=== PATIENT | male | born 1950 | race Caucasian/White ===

== ENCOUNTER 2022-05-22 13:18 | Outpatient (CLI) | payer MEDICARE, SELFPAY ==
[2022-05-22 21:33] LABS: Albumin* 4.7 g/dL (3.3-5.0); Chloride* 104 mmol/L (96-114)
[2022-05-22 21:34] LABS: Potassium* 4.6 mmol/L (3.6-5.1); Sodium* 141 mmol/L (135-149)
[2022-05-22 21:36] LABS: Aspartate Amino Transferase* 22 U/L (12-35); Bilirubin Total* 0.6 mg/dL (0.1-1.5); Carbon Dioxide* 27 mmol/L (20-32); Creatinine* 1.4 mg/dL (0.5-1.5); Estimated Glomerular Filt Rate 54 ml/min; Total Protein* 7.4 g/dL (6.0-8.3)
[2022-05-22 21:37] LABS: Alanine Aminotransferase* 22 U/L (4-50); Alkaline Phosphatase* 50 U/L (40-150); Blood Urea Nitrogen* 32 mg/dL (7-30); Calcium* 10.2 mg/dL (8.4-10.6); Glucose* 137 mg/dL (60-115)
== END 2022-05-22 13:19 | disposition home or self-care (01) ==
LOC: FRMREF 13:20
PROVIDERS: PCP Physician Assistant Medical; Visit Provider Family Medicine
DX: R05.9 Cough, unspecified (principal); R53.83 Other fatigue
CPT/HCPCS: 80053

== ENCOUNTER 2022-07-24 09:25 | Outpatient (CLI) | payer MEDICARE, SELFPAY ==
[2022-07-24 12:54] LABS: Albumin* 4.3 g/dL (3.3-5.0); Chloride* 106 mmol/L (96-114)
[2022-07-24 12:55] LABS: Potassium* 5.4 mmol/L (3.6-5.1); Sodium* 141 mmol/L (135-149)
[2022-07-24 12:57] LABS: Aspartate Amino Transferase* 22 U/L (12-35); Bilirubin Total* 0.5 mg/dL (0.1-1.5); Blood Urea Nitrogen* 30 mg/dL (7-30); Carbon Dioxide* 29 mmol/L (20-32); Cholesterol* 129 mg/dL (90-199); Creatinine* 1.4 mg/dL (0.5-1.5); Estimated Glomerular Filt Rate 54 ml/min; Glucose* 161 mg/dL (60-115)
[2022-07-24 12:58] LABS: Alanine Aminotransferase* 22 U/L (4-50); Alkaline Phosphatase* 45 U/L (40-150); Calcium* 9.3 mg/dL (8.4-10.6); HDL Cholesterol* 39 mg/dL (>=40); LDL Cholesterol Calculated 68 mg/dL (<100); Triglycerides* 108 mg/dL (40-149)
== END 2022-07-24 09:26 | disposition home or self-care (01) ==
PROVIDERS: PCP Physician Assistant Medical; Visit Provider Family Medicine
DX: Z00.00 Encounter for general adult medical examination without abnormal findings (principal); E11.9 Type 2 diabetes mellitus without complications; E78.5 Hyperlipidemia, unspecified; I10 Essential (primary) hypertension
CPT/HCPCS: 80053; 80061

== ENCOUNTER 2023-02-03 10:08 | Outpatient (CLI) | payer MEDICARE, SELFPAY | END 2023-02-03 10:09 | disposition home or self-care (01) | LOC: NFLDREF 02-05 10:14 | PROVIDERS: PCP Physician Assistant Medical; Referring Provider Physician Assistant Medical; Visit Provider Family Medicine | DX: Z00.00 Encounter for general adult medical examination without abnormal findings (principal); D64.9 Anemia, unspecified; E11.42 Type 2 diabetes mellitus with diabetic polyneuropathy; E78.2 Mixed hyperlipidemia; I10 Essential (primary) hypertension; M10.9 Gout, unspecified | CPT/HCPCS: 80053; 80061; 82043; 82570 ==

== ENCOUNTER 2023-02-24 09:48 | Outpatient (CLI) | payer MEDICARE, SELFPAY ==
--- NOTE | 2023-02-24 10:00 | CRLHL7_ITS ---
For Patients: As a result of the Century Cures Act, medical imaging exams and procedure reports are released immediately into your electronic medical record. You may view this report before your referring provider. If you have questions, please contact your health care provider. INDICATION: Disturbance of salivary secretions. Technique : A routine CT scan of the brain extends from the level of the maxilla to the calvarial vertex without contrast. Findings : The ventricles and subarachnoid spaces are proportionately enlarged due to cerebral and cerebellar volume loss. There is no acute intracranial hemorrhage there is no mass effect no midline shift. No subdural fluid collections. Small vessel ischemic changes are noted within the frontal lobe white matter and basal ganglia. Small chronic lacunar infarct in the left thalamus. No posterior fossa hemorrhage or mass effect. Paranasal sinuses appear grossly clear. The visualized portions of the parotid glands are unremarkable without evidence of ductal dilatation. Note however that the entirety of the salivary anatomy is not included. IMPRESSION: 1. Cerebral and cerebellar volume loss. Chronic small vessel ischemic changes and small chronic lacunar infarcts. 2. No parotid sialolith or parotid gland sialectasis is seen on routine CT brain images. 3. More complete evaluation of the major salivary glands would require additional imaging of the lower face and upper neck. Please note that all CT scans at this facility use dose modulation, iterative reconstruction, and/or weight-based dosing when appropriate to reduce radiation dose to as low as reasonably achievable. Dictated by Randy Milan MD @ 02/24/2023 11:57:31 AM (Electronically Signed)
--- NOTE | 2023-02-24 10:30 | CRLHL7_ITS ---
For Patients: As a result of the Century Cures Act, medical imaging exams and procedure reports are released immediately into your electronic medical record. You may view this report before your referring provider. If you have questions, please contact your health care provider. CLINICAL HISTORY: EXCESSIVE SALIVATING TECHNIQUE: The carotid circulations and the vertebral arteries in the neck were examined with osei-scale ultrasound, color-flow and Doppler spectral analysis. Degrees of stenosis were determined using SRU 2002 Consensus Panel Criteria. FINDINGS: Sonographic images demonstrate minimal atherosclerotic plaque formation without suspicious soft tissue mass. There was antegrade blood flow demonstrated within the vertebral arteries and the subclavian arteries demonstrated a normal triphasic waveform. The spectral Doppler tracings of the common carotid, internal and external carotid arteries demonstrate no abnormal turbulence or spectral broadening. There was no significant elevation of peak systolic blood flow which would indicate a hemodynamically-significant stenosis by SRU criteria. The ICA/CCA peak systolic velocity ratio measures 1.9 on the right and 0.8 on the left. IMPRESSION: Less than 50 percent stenosis of the internal carotid arteries. Dictated by Kahlil Woodruff MD @ 02/24/2023 11:53:47 AM (Electronically Signed)
== END 2023-02-24 09:49 | disposition home or self-care (01) ==
PROVIDERS: PCP Family Medicine; Visit Provider Family Medicine
DX: K11.7 Disturbances of salivary secretion (principal); I63.81 Other cerebral infarction due to occlusion or stenosis of small artery
CPT/HCPCS: 70450; 93880

== ENCOUNTER 2023-03-25 09:28 | Outpatient (CLI) | payer MEDICARE, SELFPAY ==
--- NOTE | 2023-03-25 09:45 | CRLHL7_ITS ---
For Patients: As a result of the Century Cures Act, medical imaging exams and procedure reports are released immediately into your electronic medical record. You may view this report before your referring provider. If you have questions, please contact your health care provider. INDICATION: HYPERTENSION TECHNIQUE: Grayscale, color Doppler and power Doppler evaluation of both kidneys and renal arteries. COMPARISON: None available FINDINGS: BILATERAL RENAL ARTERY DUPLEX ULTRASOUND ABDOMINAL AORTA: Peak systolic velocity = 60 cm/s. No aortic aneurysm. RIGHT KIDNEY: 11.6 cm in length. There is no hydronephrosis. Peak systolic velocity = 71 cm/second Renal artery to aortic peak systolic velocity ratio = 1.2 Resistive indices: 0.5-0.7 Renal vein = patent LEFT KIDNEY: 11.4 cm in length. There is no hydronephrosis. Peak systolic velocity = 65 cm/second Renal artery to aortic peak systolic velocity ratio = 1.1 Resistive indices: 0.670.7 Renal vein = patent IMPRESSION: No evidence of significant renal artery stenosis. Dictated by Kahlil Woodruff MD @ 03/26/2023 7:33:14 AM (Electronically Signed)
== END 2023-03-25 09:29 | disposition home or self-care (01) ==
LOC: US 09:34
PROVIDERS: PCP Family Medicine; Visit Provider Internal Medicine Nephrology
DX: I12.9 Hypertensive chronic kidney disease with stage 1 through stage 4 chronic kidney disease, or unspecified chronic kidney disease (principal); E11.22 Type 2 diabetes mellitus with diabetic chronic kidney disease; N18.32 Chronic kidney disease, stage 3b; R80.9 Proteinuria, unspecified; E11.29 Type 2 diabetes mellitus with other diabetic kidney complication
CPT/HCPCS: 76775; 93975

== ENCOUNTER 2023-04-11 13:09 | Outpatient (CLI) | payer MEDICARE, SELFPAY | END 2023-04-11 13:10 | disposition home or self-care (01) | LOC: NFLDREF 04-14 09:30 | PROVIDERS: PCP Family Medicine; Referring Provider Family Medicine; Visit Provider Internal Medicine Nephrology | DX: I10 Essential (primary) hypertension (principal); E78.5 Hyperlipidemia, unspecified; E11.9 Type 2 diabetes mellitus without complications; M10.9 Gout, unspecified; R80.9 Proteinuria, unspecified; D64.9 Anemia, unspecified | CPT/HCPCS: 82043; 82570 ==

== ENCOUNTER 2023-07-28 08:59 | Outpatient (CLI) | payer MEDICARE, SELFPAY ==
--- OUTSIDE RECORDS SUMMARY | 2023-07-28 15:32 | XMS_ITS | Clinical Summary ---
Author Name Unknown Organization [facility] Address [address] [place] [address] Care Team Providers Care Lithoduplicator Operator Name Role Phone Unavailable Primary Care Provider Unavailabl e Source Comments Patient records contain information from all sites at [facility]. For routine questions regarding patient records, call [phone] during business hours, M-F 8:00 AM - 5:00 PM Central Time. Record requests for emergency care only can be directed to [phone] at any time.[facility] Medications Medication Sig Dispensed Refills Start Date End Date Status amLODIPine (NORVASC) 5 mg tablet Take 1 tablet (5 mg total) by mouth daily. 90 tablet 3 03/18/2023 03/17/2024 Active carvediloL (COREG) 25 mg tablet Take 1 tablet (25 mg total) by mouth 2 (two) times a day with meals. 180 tablet 3 03/18/2023 03/17/2024 Active gabapentin (NEURONTIN) 300 mg capsule Take 1 capsule (300 mg total) by mouth at bedtime. 90 capsule 3 03/18/2023 03/17/2024 Active dulaglutide (Trulicity) 1.5 mg/0.5 mL pen injector injection Inject 0.5 mL (1.5 mg total) under the skin every 7 (seven) days. 6 mL 3 03/18/2023 03/17/2024 Active glipiZIDE (GLUCOTROL XL) 10 mg 24 hr tablet Take 2 tablets (20 mg total) by mouth 2 (two) times a day. 360 tablet 3 03/18/2023 03/17/2024 Active metFORMIN (GLUCOPHAGE) 1,000 mg tablet Take 1 tablet (1,000 mg total) by mouth 2 (two) times a day with meals. 180 tablet 3 03/18/2023 03/17/2024 Active rosuvastatin (CRESTOR) 10 mg tablet Take 1 tablet (10 mg total) by mouth daily. 90 tablet 3 03/18/2023 03/17/2024 Active valsartan-hydroCHLO ROthiazide (DIOVAN-HCT) 320-25 mg per tablet Take 1 tablet by mouth daily. 90 tablet 3 03/18/2023 03/17/2024 Active testosterone (ANDRODERM) 2 mg/[address] 1 patch on the skin daily. 0 Active Active Problems Problem Noted Date Diagnosed Date Diabetes Mellitus Type 2 With Diabetic Nephropat hy 03/18/2023 Chronic Kidney Disease (CKD) , Stage 3a Glomerular Filtration Rate (GFR) 45 To 59 03/18/2023 Hypertensive Chronic Kidney Disease (CKD) Stage 3a Glomerular Filtration Rate (GFR) 45 To 59 03/18/2023 Hyperlipidemia Mixed 03/18/2023 Gastroesophageal Reflux Disease Without Esophagi tis 03/18/2023 Gout 03/18/2023 Social History Tobacco Use Types Packs/Day Years Used Date Smoking Tobacco: Never Assessed Nutrition Answer Date Recorded Nutrition: EVOO Fat Source Unknown 03/06 Nutrition: Servings of Fruits/Vegetables per Day Not on file 03/06/2023 Dental Answer Date Recorded Dental: Regular Dentist Unknown 03/06/20 Sex and Gender Information Value Date Recorded Sex Assigned at Not on file Gender Identity Not on file Sexual Orientation Not on file Last Filed Vital Signs Vital Sign Reading Time Taken Comments Blood Pressure 152/80 04/15/2023 4:08 PM IRON ERECTOR Pulse 67 04/15/2023 4:08 PM IRON ERECTOR Temperature - - Respiratory Rate - - Oxygen Saturation - - Inhaled Oxygen Concentration - - Weight 97 kg (213 lb 13.5 oz) 04/15/2023 4:08 PM IRON ERECTOR Height 175 cm (5' 8.9) 04/15/2023 4:08 PM IRON ERECTOR Body Mass Index 31.67 04/15/2023 4:08 PM IRON ERECTOR Plan of Treatment Health Maintenance Due Date Last Done Comments CT Colonography 1950 Cologuard 1950 Colonoscopy 1950 Colorectal Cancer Screening 1950 Diabetic Office Visit with F oot Exam 1950 Dilated Eye Exam 1950 FIT 1950 Hemoglobin A1C 1950 Hepatitis C Screening 1950 Lipid (Cholesterol) Screening 1950 Potassium Level 1950 Sodium Level 1950 Urine Albumin 1950 DTaP,Tdap,and Td Vaccines (1 - Tdap) 11/23/2019 11/22/2019, 04/05/2019 Depression Screening (Annual PHQ-2) 06/09/2023 Fall Risk Screen (Annual) 06/09/2023 Creatinine Level (Kidney Fun ction Test) 06/24/2023 06/24/2022, 05/09/2022 Office Visit for Blood Press ure Check / Re-check 07/16/2023 04/15/2023 Zoster Vaccines Completed 02/02/2020, 08/07, 10/14/2011 Pneumococcal vaccine (65+ years) Completed 03/03/2022, 02/28/2021, 10/02/2015 Influenza Vaccine Completed 02/18/2023, , 03/06/2022, Additional history exists COVID-19 Vaccine Completed 03/04/2023, 06/2021, 09/10/2021, Additional history exists
--- OUTSIDE RECORDS SUMMARY | 2023-07-28 15:32 | XMS_ITS | Encounter Summary ---
Author Name Unknown Organization [facility] Address [address] [place] [address] Care Team Providers Care Rn Delivery Name Role Phone Unavailable Primary Care Provider Unavailabl e Reason for Visit * Appointment Request (Routine) - Closed Specialty Diagnoses / Procedures Referred By Contac t Referred To Contact Nephrology and Hypertension Referral ID Status Reason Start Date Expiration Date Visits Re quested Visits Authorized [id number] Closed 03/28/2023 03/27/2024 1 1 Encounter Details Date Type Department Care Team (Latest Contact Info) Description 04/15/2023 3:30 PM PREMIX CONCRETE BATCHER External Outreach Division of Nephrology and Hypertension in [place], [place] [address] [place] [address] Raul Kapadia Jr., D.O. [address] [place] [address] Chronic Kidney Disease (CKD), Stage 3a Glomerular Filtration Rate (GFR) 45 To 59 (HCC) (Primary Dx); Diabetes Mellitus Type 2 With Diabetic Nephropathy (HCC); Hypertensive Chronic Kidney Disease (CKD) Stage 3a Glomerular Filtration Rate (GFR) 45 To 59 (HCC); Hyperlipidemia Mixed; Gout Social History Tobacco Use Types Packs/Day Years [...] on file Sexual Orientation Not on file documented as of this encounter Last Filed Vital Signs Vital Sign Reading Time Taken Comments Blood Pressure 152/80 04/15/2023 4:08 PM PREMIX CONCRETE BATCHER Pulse 67 04/15/2023 4:08 PM PREMIX CONCRETE BATCHER Temperature - - Respiratory Rate - - Oxygen Saturation - - Inhaled Oxygen Concentration - - Weight 97 kg (213 lb 13.5 oz) 04/15/2023 4:08 PM PREMIX CONCRETE BATCHER Height 175 cm (5' 8.9) 04/15/2023 4:08 PM PREMIX CONCRETE BATCHER Body Mass Index 31.67 04/15/2023 4:08 PM PREMIX CONCRETE BATCHER documented in this encounter Progress Notes * Raul Kapadia Jr., D.O. - 04/15/2023 3:30 PM CST Referring Provider: Kelsie Walker PA-C SUBJECTIVE REASON FOR VISIT [place] [facility] Follow-up regards CKD HISTORY OF PRESENT ILLNESS Mr. Yañez is a 72 y.o. male who presents with diabetic and hypertensive nephrosclerosis. Since our last visit he has done well, he is no constitutional complaints, no cardiovascular complaints no stroke or stroke-like symptoms. Brings his blood pressure log with him today. His blood pressures have been between 120 and 150s systolic, the majority of readings are in the 130s. He has had no orthostatic issues, no lower extremity swelling and no urinary outlet changes. He has been free of hypoglycemic events and I congratulated him on his excellent glycemic control with a hemoglobin A1c of 7%. No issues with his sleep no PND no orthopnea. He continues to use NSAIDs on a regular basis regards his severe right shoulder pain. No past medical history on file. Current Outpatient Medications: amLODIPine (NORVASC) 5 mg tablet, Take 1 tablet (5 mg total) by mouth daily., Disp: 90 tablet, Rfl:3 carvediloL (COREG) 25 mg tablet, Take 1 tablet (25 mg total) by mouth 2 (two) times a day with meals., Disp: 180 tablet, Rfl: 3 dulaglutide (Trulicity) 1.5 mg/0.5 mL pen injector injection, Inject 0.5 mL (1.5 mg total) under the skin every 7 (seven) days., Disp: 6 mL, Rfl: 3 gabapentin (NEURONTIN) 300 mg capsule, Take 1 capsule (300 mg total) by mouth at bedtime., Disp: 90capsule, Rfl: 3 glipiZIDE (GLUCOTROL XL) 10 mg 24 hr tablet, Take 2 tablets (20 mg total) by mouth 2 (two) times a day., Disp: 360 tablet, Rfl: 3 metFORMIN (GLUCOPHAGE) 1,000 mg tablet, Take 1 tablet (1,000 mg total) by mouth 2 (two) times a daywith meals., Disp: 180 tablet, Rfl: 3 rosuvastatin (CRESTOR) 10 mg tablet, Take 1 tablet (10 mg total) by mouth daily., Disp: 90 tablet, Rfl: 3 testosterone (ANDRODERM) 2 mg/24 hour, Place 1 patch on the skin daily., Disp: , Rfl: valsartan-hydroCHLOROthiazide (DIOVAN-HCT) 320-25 mg per tablet, Take 1 tablet by mouth daily., Disp: 90 tablet, Rfl: 3 REVIEW OF SYSTEMS All other systems reviewed and are negative. OBJECTIVE BP 152/80 Pulse 67 Ht 175 cm Wt 97 kg BMI 31.67 kg/m?? PHYSICAL EXAMINATION General: Awake alert oriented HEENT: [place], EOMI, Mucous membranes moist, no oral lesions Neck: No Masses, No Bruits Lungs: Clear to ascultation Heart: Regular Rate and Rhythm, No ectopy Murmurs or rubs Abdomen: Soft, Non-tender Extremities: No cyanosis, No clubbing: No edema Neuro: Cranial Nerves intact, Gait is normal, strength grossly normal Skin: no suspicious lesions identified Psychiatric: Normal affect DIAGNOSTICS Appreciate serum creatinine 1.4 mg/dL note microalbumin to creatinine ratio 300 milligrams/gram, hemoglobin A1c 7% ASSESSMENT / PLAN #1 Chronic Kidney Disease (CKD), Stage 3a Glomerular Filtration Rate (GFR) 45 To 59 (HCC) He is hypertensive and ischemic as well as diabetic nephrosclerosis, he is doing well from an overall trajectory and I congratulated him. Going forward: 1. Goal blood pressure less than 130/80 2. Goal glycosylated hemoglobin less than 7.5% 3. Minimize use of NSAIDs 4. Stay well hydrated 5. Return to clinic in 6 months. #2 Diabetes Mellitus Type 2 With Diabetic Nephropathy (HCC) Excellent glycemic control I congratulated him. We will not change his regimen. #3 Hypertensive Chronic Kidney Disease (CKD) Stage 3a Glomerular Filtration Rate (GFR) 45 To 59 (HCC) I am satisfied with his blood pressure he is met correction values I encouraged him to be careful with the sodium and minimize the use of the NSAIDs. #4 Hyperlipidemia Mixed Excellent control in his statin agent. #5 Gout No flare Total time: 30 minute Counseling Time: 20 minutes Raul Kapadia Jr., D.O. IX CONCRETE BATCHER documented in this encounter Plan of Treatment Not on file documented as of this encounter Visit Diagnoses Diagnosis Chronic Kidney Disease (CKD), Stage 3a Glomerular Filtration Rate (GFR) 45 To 59 (HCC)- Primary Diabetes Mellitus Type 2 With Diabetic Nephropathy (HCC) Hypertensive Chronic Kidney Disease (CKD) Stage 3a Glomerular Filtration Rate (GFR) 45 To 59 (HCC) Hyperlipidemia Mixed Gout documented in this encounter
--- OUTSIDE RECORDS SUMMARY | 2023-07-28 15:32 | XMS_ITS | Encounter Summary ---
Author Name Unknown Organization [facility] Address [address] [place] [address] Care Team Providers Care Carbon Paper Coating Supervisor Name Role Phone Unavailable Primary Care Provider Unavailabl e Reason for Visit * Reason Onset Date Comments Rx Prior Authorization 03/19/2023 Androderm Encounter Details Date Type Department Care Team (Latest Contact Info) Description 03/19/2023 Clinical Communication Division of Nephrology and Hypertension in [place], [place] [address] [place] [address] Raul Kapadia Jr., D.O. [address] [place] [address] Rx Prior Authorization (Androderm) Social History Tobacco Use Types Packs/Day Years [...] on file documented as of this encounter Miscellaneous Notes * Telephone Encounter - Jacqueline Faustin RBrielle - 03/21/2023 1:[address] Kapadia indicated it was not his intention to renew the testosterone medication as he did not have this sent to the pharmacy, this was just to be added to the medication list. I have added it onas a historical med. documented in this encounter Plan of Treatment Not on file documented as of this encounter Visit Diagnoses Not on filedocumented in this encounter
--- OUTSIDE RECORDS SUMMARY | 2023-07-28 15:32 | XMS_ITS ---
Author Name Unknown Organization [facility] Address [address] [place] [address] Care Team Providers Care Trapper Animal Name Role Phone Unavailable Unavailable Unavailable Surgery Details Not on file Complications Check Surgery Details section. Procedure Estimated Blood Loss Check Surgery Details section. Procedure Findings Check Surgery Details section. Procedure Specimens Taken Check Surgery Details section.
--- OUTSIDE RECORDS SUMMARY | 2023-07-28 15:32 | XMS_ITS | Referral Summary ---
Author Name Unknown Organization [facility] Address [address] [place] [address] Care Team Providers Care Account Clerk Name Role Phone Unavailable Primary Care Provider Unavailabl e Source Comments Patient records contain information from all sites at [facility]. For routine questions regarding patient records, call [phone] during business hours, M-F 8:00 AM - 5:00 PM Central Time. Record requests for emergency care only can be directed to [phone] at any time.[facility] Medications Medication Sig Dispensed Refills Start [...] Comments Blood Pressure 152/80 04/15/2023 4:08 PM SELECT BANKER Pulse 67 04/15/2023 4:08 PM SELECT BANKER Temperature - - Respiratory Rate - - Oxygen Saturation - - Inhaled Oxygen Concentration - - Weight 97 kg (213 lb 13.5 oz) 04/15/2023 4:08 PM SELECT BANKER Height 175 cm (5' 8.9) 04/15/2023 4:08 PM SELECT BANKER Body Mass Index 31.67 04/15/2023 4:08 PM SELECT BANKER Plan of Treatment Not on file
--- OUTSIDE RECORDS SUMMARY | 2023-07-28 15:32 | XMS_ITS | Encounter Summary ---
Author Name Unknown Organization [facility] Address [address] [place] [id number] Care Team Providers Care Chlorine Cell Tender Name Role Phone Unavailable Primary Care Provider Unavailabl e Reason for Visit * Appointment Request (Routine) - Closed Specialty Diagnoses / Procedures Referred By Contac t Referred To Contact Nephrology and Hypertension Kelsie Walker, Betty [address] [place] [address] Referral ID Status Reason Start Date Expiration Date Visits Re quested Visits Authorized [id number] Closed 03/06/2023 03/05/2024 1 1 Encounter Details Date Type Department Care Team (Latest Contact Info) Description 03/18/2023 1:00 PM CDT External Outreach Division of Nephrology and Hypertension in [place], [place] [address] [place] [address] Raul Kapadia Jr., D.O. [address] [place] [address] Hypertensive Chronic Kidney Disease (CKD) Stage 3a Glomerular Filtration Rate (GFR) 45 To 59 (HCC) (Primary Dx); Chronic Kidney Disease (CKD), Stage 3a Glomerular Filtration Rate (GFR) 45 To 59 (HCC); Diabetes Mellitus Type 2 With Diabetic Nephropathy (HCC); Gastroesophageal Reflux Disease Without Esophagitis; Hyperlipidemia Mixed; Gout Social History Tobacco Use [...] Sign Reading Time Taken Comments Blood Pressure 144/86 03/18/2023 1:55 PM CDT Pulse 70 03/18/2023 1:02 PM CDT Temperature - - Respiratory Rate - - Oxygen Saturation - - Inhaled Oxygen Concentration - - Weight 96.6 kg (212 lb 15.4 oz) 03/18/2023 1:02 PM CDT Height 175.2 cm (5' 8.98) 03/18/2023 1:02 PM CD T Body Mass Index 31.47 03/18/2023 1:02 PM CDT documented in this encounter Progress Notes * Raul Kapadia Jr., D.O. - 03/18/2023 1:00 PM CDT Referring Provider: Dr. Saldivar REASON FOR VISIT Full consultation regards proteinuria, diabetes mellitus, resistant hypertension HISTORY OF PRESENT ILLNESS Mr. Yañez is a 72 y.o. male who presents with an approximately 13 year history of hypertension diabetes mellitus. I am asked to visit with him on the background of his urine microalbumin to creatinine ratio increasing to 250 milligrams/gram. This was just noted back in late January 2023. He has had abnormal microalbumin to creatinine ratio levels dating back to the 2011 time frame, which then improved to normal, and have been progressively rising since 2019. His blood pressures been well controlled until more recently when he relates that when he checks his blood pressure approximately weekly he is noted blood pressures rising up into the 140s and now 150s and 60s. He has had no shortness of breath no chest pain no lower extremity swelling. His potassium levels have been normal. Has been using ibuprofen on a regular basis, and has done so for the past several years. He takes 2 in the morning and 2 in the evening. He is not noticed any changes in his breathing or sleep quality although his does complain of him snoring, and his hypopharynx is indeed quite crowded-see exam. He is not had renal imaging performed. He is a normal serum creatinine level 1.5 mg/dL, but the microalbumin as noted above. Appreciate nohistory of urolithiasis, gross hematuria, renal trauma, scarlet or rheumatic fever. He is heavily using NSAIDs as mentioned above. He is never had gross hematuria, he does describe some urinary foaming. There is no familial history of renal diseases or disorders. His urine sediment has not been active, he has had no hematuria. His diabetes mellitus has been well controlled, hemoglobin A1c at 7%. Traditionally he has been well controlled he is on an aggressive oral hypoglycemic regimen, along with Trulicity. He is using a substantial dose of glipizide, 20 mg twice a day, and metformin a g twice daily. No hypoglycemic events. He does not have any retinopathy nor neuropathic symptoms per se, but uses gabapentin to help with restless legs. From a constitutional perspective he feels well no unusual rashes no gout. He is not suffering withany myopathy, no unusual skin lesions, no weight loss fevers chills, and no cardiovascular complaints. He is a retired worker for [employer], and work quite hard during his life for the [employer] and other very rigorous physical activities. Past medical history: 1. Diabetes mellitus type 2 2. Hypertension 3. Microalbuminuria 4. Gout 5. GERD 6. Hyperlipidemia 7. 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 OBJECTIVE BP 144/86 Pulse 70 Ht 175.2 cm Wt 96.6 kg BMI 31.47 kg/m?? PHYSICAL EXAMINATION General: Awake alert oriented HEENT: GARFIELD, EOMI, Mucous membranes moist, no oral lesions Neck: No Masses, No Bruits Lungs: Clear to ascultation Heart: Regular Rate and Rhythm, No ectopy Murmurs or rubs Abdomen: Soft, Non-tender, protuberant no bruits Extremities: No cyanosis, No clubbing: No edema Neuro: Cranial Nerves intact, Gait is normal, strength grossly normal Skin: no suspicious lesions identified Psychiatric: Normal affect DIAGNOSTICS Note normal serum creatinine 1.5 mg/dL, microalbumin to creatinine ratio 240 milligrams/gram normalCBC hemoglobin A1c 7% ASSESSMENT / PLAN #1 Hypertensive Chronic Kidney Disease (CKD) Stage 3a Glomerular Filtration Rate (GFR) 45 To 59 (HCC) I strongly suspect he has some degree of hypertensive and ischemic nephrosclerosis, with a creatinine of 1.5, although normal in this lab comment does denote a estimated GFR of roughly 50 cc/minute. Going forward: 1. We will ensure he has normal macrovascular characteristics with Doppler of his renal arteries 2. We will make sure the structure of his kidney are normal 3. We will repeat urine microalbumin to creatinine 4. Our goals will be blood pressures of less than 130 over 80s 5. Towards this goal I will exchange carvedilol 25 mg orally twice daily for his metoprolol 50 mg orally twice daily 6. I have asked him to minimize use of NSAIDs as possible 7. Stay well hydrated-at least 40 oz of water per day 8. I have asked him to ask his regards his sleep patterns and whether he stops breathing 9. I have asked him to check his blood pressure at least twice weekly twice daily and record, such that we can keep track of his log 10. I will have him back in 1 month's time to recheck his ultrasound results as well as his resultswith respect to the medication exchange. #2 Chronic Kidney Disease (CKD), Stage 3a Glomerular Filtration Rate (GFR) 45 To 59 (HCC) Please see above discussion #3 Diabetes Mellitus Type 2 With Diabetic Nephropathy (HCC) Glycemic control seems reasonable, he may benefit from an SG LT 2 inhibitor as a next step for his blood pressure and weight loss and perhaps we could cut back on the glipizide. #4 Gastroesophageal Reflux Disease Without Esophagitis I do not believe at this point we need to abandon the use of his PPI #5 Hyperlipidemia Mixed He should continue on his statin #6 Gout He has had no recent gout flares but he does have osteoarthritis. It would be terrific if we could get him off of his ibuprofen but this does not seem possible. He is tried multiple topical and otherremedies I do not believe at this point we are going to be successful in stopping the NSAIDs. Optimally however we would do so. Total time: 1 hour Counseling Time: 45 minutes Raul Kapadia Jr., D.O. documented in this encounter Plan of Treatment Not on file documented as of this encounter Visit Diagnoses Diagnosis Hypertensive Chronic Kidney Disease (CKD) Stage 3a Glomerular Filtration Rate (GFR) 45 To 59 (HCC)- Primary Chronic Kidney Disease (CKD), Stage 3a Glomerular Filtration Rate (GFR) 45 To 59 (HCC) Diabetes Mellitus Type 2 With Diabetic Nephropathy (HCC) Gastroesophageal Reflux Disease Without Esophagitis Hyperlipidemia Mixed Gout documented in this encounter
--- OUTSIDE RECORDS SUMMARY | 2023-07-28 15:32 | XMS_ITS | Clinical Summary ---
Author Name Unknown Organization [facility] Address [place], [place] [address] Care Team Providers Care Meals On Wheels Driver Name Role Phone Yael Saldivar RN Primary Care Provider Un available Allergies No known active allergies Medications Medication Sig Dispensed Refills Start Date End Date Status aspirin chewable 81 mg chewable tablet Take 1 tablet by mouth once daily with a meal. 0 02/26/2016 Active glipiZIDE extended-release (GLUCOTROL XL) 10 mg Extended-Release tabletIndications:Diab etes mellitus of other type with complication Take 1 tablet by mouth once daily before a meal. 0 02/26/2016 Active MULTIVITAMIN (MULTIPLE VITAMIN ESSENTIAL) tab Take by mouth. 0 02/26/2016 Active amLODIPine (NORVASC) 5 mg tablet 0 12/22/2018 Active loratadine (CLARITIN) 10 mg tablet Take 1 tablet by mouth once daily. 0 03/08/2019 Active gabapentin (NEURONTIN) 300 mg capsule TAEK 1 CAPSULE BY MOUTH 3 TIMES DAILY. WEAT TO START AND STOP MEDICATION. 0 11/22/2019 Active metFORMIN (GLUCOPHAGE) 1,000 mg tablet Take 1,000 mg by mouth 2 times daily with meals. 0 01/26/2020 Active metoprolol succinate (TOPROL XL) 50 mg sustained-release tablet Take 50 mg by mouth once daily. 0 02/26/2020 Active Microlet Lancet USE TO TEST BLOOD GLUCOSE TWICE DAILY 0 07/03/2020 Active Contour Next Meter USE TO TEST BLOOD GLUCOSE TWICE DAILY 0 07/05/2020 Active rosuvastatin (CRESTOR) 10 mg tablet 0 11/08/2020 Active Contour Next Test Strips strip USE TO TEST BLOOD GLUCOSE TWICE DAILY 0 07/03/2020 Active valsartan-hydrochlorot hiazide (DIOVAN HCT) 320-25 mg per tablet Take 1 Tablet by mouth once daily. 0 08/28/2021 Active testosterone 1%, 25 mg/2.5 g, (ANDROGEL/VOGELXO) topical gelIndications:Low testosterone Apply daily to clean dry intact skin of shoulder, upper arms or abdomen. Do NOT apply to genitals. 30 Packet 2 07/31/2022 Active testosterone 1%, 50 mg/5 g, (ANDROGEL/VOGELXO) topical gelIndications:Low testosterone,Erectile dysfunction, unspecified erectile dysfunction type Apply one packet daily to clean dry intact skin of shoulder, upper arms or abdomen. Do NOT apply to genitals. 150 g 2 09/09/2022 Active Active Problems Problem Noted Date Diagnosed Date Low testosterone 02/26/2016 Immunizations Name Administration Dates Next Due COVID-19 vaccine ([employer] 30mcg/0.3mL) PF, MDV 08/31/2020,08/10/2020 Influenza, High-dose Inactivated 02/28/2016 Influenza, Inactivated IIV3 (Age 65+ Years) Preserv Free 03/08/2019,03/02/2018,03/03/2017 Social History Tobacco Use Types Packs/Day Years Used Date Smoking Tobacco: Never Smokeless Tobacco: Former Chew Quit: 06/09/1994 Tobacco Cessation:Counseling Given: Yes Alcohol Use Standard Drinks/Week Comments Yes 2 (1 standard drink = 0.6 oz pur e alcohol) once a week, 1-2 beers Sex and Gender Information Value Date Recorded Sex Assigned at Male 08/10/2020 8:59 AM CASH APPLICATION CLERK Gender Identity Male 08/10/2020 8:59 AM CASH APPLICATION CLERK Sexual Orientation Straight 08/10/2020 8: 59 AM CASH APPLICATION CLERK Obstetrics History Last Filed Vital Signs Vital Sign Reading Time Taken Comments Blood Pressure 147/87 10/08/2021 10:18 AM CDT Pulse 81 03/27/2022 10:33 AM CDT Temperature 37.1 ??C (98.7 ??F) 03/02/2018 9:04 AM CD T Respiratory Rate 20 10/08/2021 10:18 AM CDT Oxygen Saturation 98% 03/27/2022 10:33 AM CDT Inhaled Oxygen Concentration - - Weight 97.5 kg (215 lb) 03/27/2022 10:33 AM CDT Height 174 cm (5' 8.5) 06/25/2017 10:37 AM CASH APPLICATION CLERK Body Mass Index 32.21 06/25/2017 10:37 AM CASH APPLICATION CLERK Plan of Treatment Health Maintenance Due Date Last Done Comments Tdap 1961 Depression screening for age 12+ 1962 Hepatitis C screening for ag e 18-79 1968 Tetanus booster 1970 Colonoscopy through age 75 09/30/1995 Lipids for age 45-75 09/30/1995 Zoster (shingles) series for age 50+ (1 of 2) 2000 Medicare Wellness for age 65+ 09/30/2015 Pneumococcal series for age 65+ (1 of 1 - PCV) 09/30/2015 BMI (ht and wt on same day) for age 18+ 06/25/2018 06/25/2017, 02/26/2016 COVID-19 vaccine series ( season) 2023 03/09/2022, 09/10/2021, 03/06/2021, Additional history exists Influenza for age 65+ 02/07/2023 03/08/2019 , 03/02/2018, 03/03/2017, Additional history exists Care Teams Meals On Wheels Driver Relationship Specialty Start Date End Date Yael Saldivar, RN PCP - General Registered Nurse 06/14/22
== END 2023-07-28 09:00 | disposition home or self-care (01) ==
PROVIDERS: PCP Family Medicine; Referring Provider Family Medicine; Visit Provider Family Medicine
DX: I10 Essential (primary) hypertension (principal); E11.42 Type 2 diabetes mellitus with diabetic polyneuropathy; E78.2 Mixed hyperlipidemia; M10.9 Gout, unspecified; E11.29 Type 2 diabetes mellitus with other diabetic kidney complication; R80.9 Proteinuria, unspecified; Z79.84 Long term (current) use of oral hypoglycemic drugs
CPT/HCPCS: 80053; 80061; 82043; 82570; 82607; 84550

== ENCOUNTER 2023-10-07 09:07 | Outpatient (CLI) | payer MEDICARE, SELFPAY ==
--- OUTSIDE RECORDS SUMMARY | 2023-10-08 06:31 | XMS_ITS | Clinical Summary ---
Author Name Unknown Organization [facility] Address [place], [place] [address] Care Team Providers Care Tool Tender Name Role Phone Yael Saldivar RN Primary [...] 02/26/2016 Active amLODIPine (NORVASC) 5 mg tablet 12/22/2018 Active loratadine (CLARITIN) 10 mg tablet Take 1 tablet by mouth once daily. 0 03/08/2019 Active gabapentin (NEURONTIN) 300 mg capsule TAEK 1 CAPSULE BY MOUTH 3 TIMES DAILY. WEAT TO START AND STOP MEDICATION. 11/22/2019 Active metFORMIN (GLUCOPHAGE) 1,000 mg tablet Take 1,000 mg by mouth 2 times daily with meals. 01/26/2020 Active metoprolol succinate (TOPROL XL) 50 mg sustained-release tablet Take 50 mg by mouth once daily. 02/26/2020 Active Microlet Lancet USE TO TEST BLOOD GLUCOSE TWICE DAILY 07/03/2020 Active Contour Next Meter USE TO TEST BLOOD GLUCOSE TWICE DAILY 07/05/2020 Active rosuvastatin (CRESTOR) 10 mg tablet 11/08/2020 Active Contour Next Test Strips strip USE TO TEST BLOOD GLUCOSE TWICE DAILY 07/03/2020 Active valsartan-hydrochlorot hiazide (DIOVAN HCT) 320-25 mg per tablet Take 1 Tablet by mouth once daily. 08/28/2021 Active testosterone 1%, 25 mg/2.5 g, [...] Name Administration Dates Next Due COVID-19 vaccine ([employer] 30mcg/0.3mL) PF, MDV 08/31/2020,08/10/2020 Influenza, High-dose Inactivated [...] Sex Assigned at Male 08/10/2020 8:59 AM UNIVERSAL WORKER ASSISTED LIVING Gender Identity Male 08/10/2020 8:59 AM UNIVERSAL WORKER ASSISTED LIVING Sexual Orientation Straight 08/10/2020 8: 59 AM UNIVERSAL WORKER ASSISTED LIVING Obstetrics History Last Filed Vital Signs Vital [...] 174 cm (5' 8.5) 06/25/2017 10:37 AM UNIVERSAL WORKER ASSISTED LIVING Body Mass Index 32.21 06/25/2017 10:37 AM UNIVERSAL WORKER ASSISTED LIVING Plan of Treatment Health Maintenance Due Date [...] 18+ 06/25/2018 06/25/2017, 02/26/2016 COVID-19 vaccine series (2022- season) 2023 03/09/2022, 09/10/2021, 03/06/2021, Additional history exists Influenza for age 65+ 02/08/2024 03/08/2019 , 03/02/2018, 03/03/2017, Additional history exists Care Teams Tool Tender Relationship Specialty Start Date End Date Yael Saldivar, RN PCP - General Registered Nurse 06/14/22
--- OUTSIDE RECORDS SUMMARY | 2023-10-08 06:31 | XMS_ITS ---
Author Name Unknown Organization [facility] Address [address] [place] [address] Care Team Providers Care Electric Blanket Packer Name Role Phone Unavailable Unavailable Unavailable Surgery Details Not on file Complications Check Surgery Details section. Procedure Estimated Blood Loss Check Surgery Details section. Procedure Findings Check Surgery Details section. Procedure Specimens Taken Check Surgery Details section.
--- OUTSIDE RECORDS SUMMARY | 2023-10-08 06:31 | XMS_ITS | Referral Summary ---
Author Name Unknown Organization [facility] Address [address] [place] [address] Care Team Providers Care Medication Assistant Name Role Phone Unavailable Primary Care Provider Unavailabl e Source Comments Patient records contain information from all sites at [facility]. For routine questions regarding patient records, call [phone] during business hours, M-F 8:00 AM - 5:00 PM Central Time. Record requests for emergency care only can be directed to [phone] at any time.[facility] Medications Medication Sig Dispensed Refills Start [...] Place 1 patch on the skin daily. Active Active Problems Problem Noted Date Diagnosed [...] Comments Blood Pressure 152/80 04/15/2023 4:08 PM WOOD GRINDER OPERATOR Pulse 67 04/15/2023 4:08 PM WOOD GRINDER OPERATOR Temperature - - Respiratory Rate - - Oxygen Saturation - - Inhaled Oxygen Concentration - - Weight 97 kg (213 lb 13.5 oz) 04/15/2023 4:08 PM WOOD GRINDER OPERATOR Height 175 cm (5' 8.9) 04/15/2023 4:08 PM WOOD GRINDER OPERATOR Body Mass Index 31.67 04/15/2023 4:08 PM WOOD GRINDER OPERATOR Plan of Treatment Not on file Procedures Procedure Name Priority Date/Time Associated Diagnosis Comments EXTI CREATININE WITH EGFR, S/P Routine 06/24/2022 10:10 AM WOOD GRINDER OPERATOR from Last 3 Months or Most Recently Relevant to Health Maintenance
--- OUTSIDE RECORDS SUMMARY | 2023-10-08 06:31 | XMS_ITS | Clinical Summary ---
Author Name Unknown Organization [facility] Address [address] [place] [address] Care Team Providers Care Woodwind Instruments Inspector Name Role Phone Unavailable Primary Care Provider Unavailabl e Source Comments Patient records contain information from all sites at [facility]. For routine questions regarding patient records, call [phone] during business hours, M-F 8:00 AM - 5:00 PM Central Time. Record requests for emergency care only can be directed to [phone] at any time.[facility] Medications Medication Sig Dispensed Refills Start Date [...] Comments Blood Pressure 152/80 04/15/2023 4:08 PM GROUP CONTRACT ANALYST Pulse 67 04/15/2023 4:08 PM GROUP CONTRACT ANALYST Temperature - - Respiratory Rate - - Oxygen Saturation - - Inhaled Oxygen Concentration - - Weight 97 kg (213 lb 13.5 oz) 04/15/2023 4:08 PM GROUP CONTRACT ANALYST Height 175 cm (5' 8.9) 04/15/2023 4:08 PM GROUP CONTRACT ANALYST Body Mass Index 31.67 04/15/2023 4:08 PM GROUP CONTRACT ANALYST Plan of Treatment Health Maintenance Due Date [...] (Kidney Fun ction Test) 06/24/2023 06/24/2022, 05/09/2022 COVID-19 Vaccine (7 - 2022-2 4 season) 2023 03/04/2023, 03/09/2022, 09/10/2021, Additional history exists Office Visit for Blood Press ure Check / Re-check 07/16/2023 04/15/2023 Zoster Vaccines Completed 02/02/2020, 08/07, 10/14/2011 Pneumococcal vaccine (65+ years) Completed 03/03/2022, 02/28/2021, 10/02/2015 Influenza Vaccine Completed 02/18/2023, , 03/06/2022, Additional history exists Procedures Procedure Name Priority Date/Time Associated Diagnosis Comments EXTI CREATININE WITH EGFR, S/P Routine 06/24/2022 10:10 AM GROUP CONTRACT ANALYST from Last 3 Months or Most Recently Relevant to Health Maintenance
== END 2023-10-07 09:08 | disposition home or self-care (01) ==
LOC: NFLDREF 10-08 06:30
PROVIDERS: PCP Family Medicine; Referring Provider Family Medicine; Visit Provider Internal Medicine Nephrology
DX: D64.9 Anemia, unspecified (principal); E11.29 Type 2 diabetes mellitus with other diabetic kidney complication; E11.9 Type 2 diabetes mellitus without complications; E78.5 Hyperlipidemia, unspecified; I10 Essential (primary) hypertension; R80.9 Proteinuria, unspecified
CPT/HCPCS: 80061; 80069; 82043; 82306; 82310; 82570; 82728; 83540; 83550; 83970; 84450; 84460; 84550; 86140

== ENCOUNTER 2024-01-05 11:52 | Outpatient (CLI) | payer MEDICARE, SELFPAY ==
--- OUTSIDE RECORDS SUMMARY | 2024-01-06 11:25 | XMS_ITS | Clinical Summary ---
Author Organization [facility] Address [address] [place] [address] Care Team Providers Care Java Enterprise Architect Name Role Phone Unavailable Primary Care Provider Unavailabl e Source Comments Patient records contain information from all sites at [facility]. For routine questions regarding patient records, call [phone] during business hours, M-F 8:00 AM - 5:00 PM Central Time. Record requests for emergency care only can be directed to [phone] at any time.[facility] Medications Medication Sig Dispensed Refills Start Date End Date Status amLODIPine (NORVASC) 5 mg tablet Take 1 tablet (5 mg total) by mouth daily. 90 tablet 3 03/18/2023 03/17/2024 Active gabapentin (NEURONTIN) [...] 1 patch on the skin daily. Active metoprolol succinate (TOPROL-XL) 25 mg 24 hr tablet Take 1 tablet (25 mg total) by mouth daily. Do not crush or chew. 10/13/2023 10/12/2024 Active Active Problems Problem Noted Date Diagnosed Date Hyperparathyroidism Renal Secondary 10/13/2023 Diabetes Mellitus Type 2 With Diabetic Nephropat hy 03/18/2023 Chronic Kidney Disease (CKD) , Stage 3a Glomerular Filtration Rate (GFR) 45 To 59 03/18/2023 Hypertensive Chronic Kidney Disease With Stage 1 Through Stage 4 Chronic Kidney Disease, Or Unspecified Chronic Kidney Disease 03/18/2023 Hyperlipidemia Mixed 03/18/2023 Gastroesophageal Reflux Disease Without Esophagi tis 03/18/2023 Gout 03/18/2023 Encounters Date Type Department Care Team Description 10/13/2023 4:00 PM CDT External Outreach Division of Nephrology and Hypertension in [place] [address] [place] [address] Raul Kapadia Jr., D.O. Chronic Kidney Disease (CKD), Stage 3a Glomerular Filtration Rate (GFR) 45 To 59 (HCC) (Primary Dx); Diabetes Mellitus Type 2 With Diabetic Nephropathy (HCC); Hypertensive Chronic Kidney Disease (CKD) Stage 3a Glomerular Filtration Rate (GFR) 45 To 59; Gout; Hyperparathyroidism Renal Secondary (HCC) from Last 3 Months Social History Tobacco Use Types Packs/Day Years [...] Sign Reading Time Taken Comments Blood Pressure 156/78 10/13/2023 4:11 PM CDT Pulse 66 10/13/2023 4:11 PM CDT Temperature - - Respiratory Rate - - Oxygen Saturation - - Inhaled Oxygen Concentration - - Weight 100 kg (221 lb 1.9 oz) 10/13/2023 4:11 PM CDT Height 175 cm (5' 8.9) 10/13/2023 4:11 PM CDT Body Mass Index 32.75 10/13/2023 4:11 PM CDT Plan of Treatment Health Maintenance Due Date Last Done Comments CT Colonography 1950 Cologuard 1950 Colonoscopy 1950 Colorectal Cancer Screening 1950 Diabetic Office Visit with F oot Exam 1950 Dilated Eye Exam 1950 FIT 1950 Hemoglobin A1C 1950 Hepatitis C Screening 1950 Lipid (Cholesterol) Screening 1950 Potassium Level 1950 Sodium Level 1950 Urine Albumin 1950 Hepatitis B Vaccines (1 of 3 - Risk 3-dose series) 2010 DTaP,Tdap,and Td Vaccines (1 - Tdap) 11/23/2019 11/22/2019, 04/05/2019 Depression Screening (Annual PHQ-2) 06/09/2023 Fall Risk Screen (Annual) 06/09/2023 Creatinine Level (Kidney Fun ction Test) 06/24/2023 06/24/2022, 05/09/2022 COVID-19 Vaccine (2 4 season) 2023 03/04/2023, 03/09/2022, 09/10/2021, Additional history exists Office Visit for Blood Press ure Check / Re-check 01/13/2024 10/13/2023 Influenza Vaccine (#1) 2024 , 03/09/2022, 03/06/2022, Additional history exists Zoster Vaccines Completed 02/02/2020, 08/07, 10/14/2011 Pneumococcal vaccine (65+ years) Completed 03/03/2022, 02/28/2021, 10/02/2015
--- OUTSIDE RECORDS SUMMARY | 2024-01-06 11:25 | XMS_ITS | Encounter Summary ---
Author Organization [facility] Address [address] [place] [id number] Care Team Providers Care Envelope Sealing Machine Operator Name Role Phone Unavailable Primary Care Provider Unavailabl e Reason for Visit * Appointment Request (Routine) - Closed Specialty Diagnoses / Procedures Referred By Contac t Referred To Contact Nephrology and Hypertension Referral ID Status Reason Start Date Expiration Date Visits Re quested Visits Authorized [id number] Closed 09/18/2023 09/17/2024 1 1 Encounter Details Date Type Department Care Team (Latest Contact Info) Description 10/13/2023 4:00 PM CDT External Outreach Division of Nephrology and Hypertension in [place], [place] [address] [place] [address] Raul Kapadia Jr., D.O. [address] [place] [address] Chronic Kidney Disease (CKD), Stage 3a Glomerular Filtration Rate (GFR) 45 To 59 (HCC) (Primary Dx); Diabetes Mellitus Type 2 With Diabetic Nephropathy (HCC); Hypertensive Chronic Kidney Disease (CKD) Stage 3a Glomerular Filtration Rate (GFR) 45 To 59; Gout; Hyperparathyroidism Renal Secondary (HCC) Social History Tobacco Use Types Packs/Day Years [...] Mass Index 32.75 10/13/2023 4:11 PM CDT documented in this encounter Progress Notes * Raul Kapadia Jr., D.O. - 10/13/2023 4:00 PM CDT Referring Provider: No primary care provider on file. SUBJECTIVE REASON FOR VISIT [facility] Follow-up regards diabetes and hypertension with CKD HISTORY OF PRESENT ILLNESS Mr. Yañez is a 73 y.o. male who presents with CKD stage IIIA secondary to diabetic and hypertensivenephrosclerosis. Since our last visit his blood sugar was difficult to control, as was unable to get the Trulicity. I note that his hemoglobin A1c is up to 8%. Also has an increase in his microalbuminuria and his creatinine has increased as well. He also relates that he experienced back pain, fatigue, and a foggy sensation with resolution as hestopped the carvedilol. He went back on metoprolol. His home blood pressures are running in the 140s and 130s now. He relates that he can tell if he has caffeine that his blood pressure rises. 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 He otherwise feels relatively well, he has been using some intermittent ibuprofen. No past medical history on file. Current Outpatient Medications: amLODIPine (NORVASC) 5 mg tablet, Take 1 tablet (5 mg total) by mouth daily., Disp: 90 tablet, Rfl:3 dulaglutide (Trulicity) 1.5 mg/0.5 mL pen injector [...] daywith meals., Disp: 180 tablet, Rfl: 3 metoprolol succinate (TOPROL-XL) 25 mg 24 hr tablet, Take 1 tablet (25 mg total) by mouth daily. Donot crush or chew., Disp: , Rfl: rosuvastatin (CRESTOR) 10 mg tablet, Take 1 tablet (10 mg total) by mouth daily., Disp: 90 tablet, Rfl: 3 testosterone (ANDRODERM) 2 mg/24 hour, Place 1 patch on the skin daily., Disp: , Rfl: valsartan-hydroCHLOROthiazide (DIOVAN-HCT) 320-25 mg per tablet, Take 1 tablet by mouth daily., Disp: 90 tablet, Rfl: 3 REVIEW OF SYSTEMS All other systems reviewed and are negative. OBJECTIVE BP 156/78 Pulse 66 Ht 175 cm Wt 100 kg BMI 32.75 kg/m?? PHYSICAL EXAMINATION General: Awake alert oriented [...] lesions identified Psychiatric: Normal affect DIAGNOSTICS Note hemoglobin A1c 8%, microalbumin to creatinine ratio is 120 milligrams/gram, creatinine increased from 1.3 up to 1.6 mg/dL ASSESSMENT / PLAN #1 Chronic Kidney Disease (CKD), Stage 3a Glomerular Filtration Rate (GFR) 45 To 59 ([facility]) His GFR has declined slightly, in his microalbuminuria has worsened. I note that his blood pressureseems less well controlled and his hemoglobin A1c has increased. Going forward: 1. Agree with goal glycosylated hemoglobin between 6.5 and 7.5%, we may need to consider switching him back to Ozempic from the [facility] as this is very difficult to get hold of. 2. Goal blood pressures need to be monitored carefully he is uncertain whether he is using 25 or 50mg of metoprolol twice daily. He will bring this back at his return visit in 4 months. I have askedhim to keep a strict log of his blood pressure. 3. I have asked him to be very cautious with using the ibuprofen and try Tylenol as his 1st step. 4. I have asked him to stay well hydrated 5. As above, I will see him back in 4 months. #2 Diabetes Mellitus Type 2 With Diabetic Nephropathy (HCC) His hemoglobin A1c has become more difficult to manage, he has on a very complex regimen. The GLP 1agonist is also extremely expensive, costing him 250 dollars per month. His situation is quite challenging currently, I wonder whether the SG LT 2 inhibitors would also be cost prohibitive. Hopefully now that he does have some Trulicity his hemoglobin A1c will become better managed. We will see him back in 4 months. #3 Hypertensive Chronic Kidney Disease (CKD) Stage 3a Glomerular Filtration Rate (GFR) 45 To 59 Goal blood pressures have not been met recently, and I am concerned about the symptoms that he experienced on the carvedilol. I have asked him as above to keep a better log of his blood pressure, andwe will monitor carefully. I have asked him to be very careful with the sodium, and continue on hiscomplex regimen. #4 Gout No flares recently. #5 Hyperparathyroidism Renal Secondary (HCC) Calcium and phosphorus are acceptable Total time: 35 minutes Counseling Time: 30 minutes Raul Kapadia Jr., D.O. documented in this encounter Plan of Treatment Not on file documented as of this encounter Visit Diagnoses Diagnosis Chronic Kidney Disease (CKD), Stage 3a Glomerular Filtration Rate (GFR) 45 To 59 (HCC)- Primary Diabetes Mellitus Type 2 With Diabetic Nephropathy (HCC) Hypertensive Chronic Kidney Disease (CKD) Stage 3a Glomerular Filtration Rate (GFR) 45 To 59 Gout Hyperparathyroidism Renal Secondary (HCC) documented in this encounter
--- OUTSIDE RECORDS SUMMARY | 2024-01-06 11:25 | XMS_ITS | Referral Summary ---
Author Organization [facility] Address [address] [place] [id number] Care Team Providers Care Network Relay Tester Name Role Phone Unavailable Primary Care Provider Unavailabl e Source Comments Patient records contain information from all sites at [facility]. For routine questions regarding patient records, call [phone] during business hours, M-F 8:00 AM - 5:00 PM Central Time. Record requests for emergency care only can be directed to [phone] at any time.[facility] Encounters Date Type Department Care Team Description 10/13/2023 4:00 PM CDT External Outreach Division of Nephrology and Hypertension in [place], [place] [address] [place] [address] Raul Kapadia Jr., D.O. Chronic Kidney Disease (CKD), Stage 3a Glomerular Filtration Rate (GFR) 45 To 59 (HCC) (Primary Dx); Diabetes Mellitus Type 2 With Diabetic Nephropathy (HCC); Hypertensive Chronic Kidney Disease (CKD) Stage 3a Glomerular Filtration Rate (GFR) 45 To 59; Gout; Hyperparathyroidism Renal Secondary (HCC) from Last 3 Months Medications Medication Sig Dispensed Refills Start Date [...] 10/13/2023 4:11 PM CDT Plan of Treatment Not on file
--- OUTSIDE RECORDS SUMMARY | 2024-01-06 11:25 | XMS_ITS ---
Author Organization [facility] Address [address] [place] [address] Care Team Providers Care Director Of Sustainability Programs Name Role Phone Unavailable Unavailable Unavailable Surgery Details Not on file Complications Check Surgery Details section. Procedure Estimated Blood Loss Check Surgery Details section. Procedure Findings Check Surgery Details section. Procedure Specimens Taken Check Surgery Details section.
--- OUTSIDE RECORDS SUMMARY | 2024-01-06 11:25 | XMS_ITS | Clinical Summary ---
Author Organization [facility] Address [place], [place] [address] Care Team Providers Care Chemical Cell Changer Name Role Phone Yael Saldivar RN Primary [...] Name Administration Dates Next Due COVID-19 vaccine (Obeo 30mcg/0.3mL) PF, MDV 08/31/2020,08/10/2020 Influenza, High-dose Inactivated [...] Sex Assigned at Male 08/10/2020 8:59 AM WILDLIFE BIOLOGIST Gender Identity Male 08/10/2020 8:59 AM WILDLIFE BIOLOGIST Sexual Orientation Straight 08/10/2020 8: 59 AM WILDLIFE BIOLOGIST Obstetrics History Last Filed Vital Signs Vital [...] 174 cm (5' 8.5) 06/25/2017 10:37 AM WILDLIFE BIOLOGIST Body Mass Index 32.21 06/25/2017 10:37 AM WILDLIFE BIOLOGIST Plan of Treatment Health Maintenance Due Date [...] 03/02/2018, 03/03/2017, Additional history exists Care Teams Chemical Cell Changer Relationship Specialty Start Date End Date Yael Saldivar, RN PCP - General Registered Nurse 06/14/22
--- OUTSIDE RECORDS SUMMARY | 2024-01-06 11:26 | XMS_ITS | Data Portability ---
Author Organization [place] [facility] Address [address] [place] [address] Care Team Providers Care Dependency Program Director Name Role Phone [facility] Primary Care Provider AGNES HALL Primary Care Provider Assessment No assessment recorded. Plan of Treatment Reminders Order Date Submit Date Provider Last Modified By Organization Details Last Modified Time Details Appointments None recorded. Lab testosteron e, bioavailabl e, serum 2023 024 [facility], [address], [place], [address], 4 12:07:16 estradiol, serum 2023 024 [facility], [address], [address], [place], [address], 4 18:20:21 CBC w/ diff 2023 024 [facility], [address], [place], [address], 4 16:07:50 Referral None recorded. Procedures None recorded. Surgeries None recorded. Imaging None recorded. Medication Orders Trimix 30 papaverine/ 1 phentolamin e/10 PGE-1 2022 023 [email or web address] Not available 3 15:28:02 testosteron e 1 % (50 mg/5 gram) transdermal gel packet 2022 023 [id number] [facility], [address] [place], [address], 4 16:16:47 testosteron e 1 % (50 mg/5 gram) transdermal gel packet 2023 024 [facility], [address] [place], [address], 4 14:42:32 Patient TargetsNo targets recorded. Patient Instructions Encounter Date Encounter Id Patient Instructions Last Modified By Organization Details Last Modified Time 10/22/2022 [id number] 72 y/o male presents for an evaluation of hypogonadism and ED Hypogonadism - Discussed symptoms of hypogonadism such as decreased libido, low energy, infertility, weight gain/increased body fat, enlarged breasts, osteoporosis, reduced facial/body hair, and mood disturbances. Informed patient testosterone is at its highest in the morning shortly after waking up which is why we obtain labs in the morning. Discussed with patient the variety of routes we can prescribe testosterone such as topical, injection, and implants. Local reactions are the most common side effects with testosterone replacement. Testicular atrophy is a risk of using testosterone replacement. Sleep apnea may worsen on testosterone replacement. Blood sugars can be affected while on testosterone. We monitor red blood cells due to risk of body creating more than necessary red blood cells while on testosterone. Relatively small increased risk of developing blood clots while on testosterone. PSA will need to be monitored due to contraindication of tetsosterone replacement with prostate cancer. Testosterone replacement lowers a male's fertility as well. Upon discontinuing testosterone replacement, there is a risk fertility status does not rebound. Discussed FDA warning about cardiovascular risk and testosterone replacement. Continue topical gel application unchanged daily. Repeat labs every 6 months. ED - Educated on etiology of ED (hormonal, nerve function, blood supply, psychological, medications). Discussed diagnostics such as penile US and testosterone labs. Educated on treatment options such as PDE-5 inhibitors, penile injections, muse, vacuum erection device (TEMI), and penile implant (IPP). Increased concentration of Trimix. Start at 0.2 cc and titrate up or down as tolerated and needed for desired response. Do not exceed 0.7 cc. Higher concentrations of Trimix available if needed. Not available 10/22/2022 17:06:42 12/02/2023 [id number] 72 y/o male presents for a follow up of hypogonadism and ED Hypogonadism - Good symptom control. Continue testosterone application unchanged. Refills provided. Maintain consistent application regimen. Repeat labs on 6 month intervals. ED - Penile injections remain a good option for patient if returning to sexual activity with his . Patient will notify office if interested in Trimix prescription. Not available 12/02/2023 14:42:49 Reason for Referral None Reported. Results Created Date Observation Date Name Description Value Unit Range Abnormal Flag LastModifiedBy Organization Detail LastModifiedTime 11/25/19 24 11/25/2023 CBC AND DIFFE RENTI AL WBC 6.77 10*3/ uL 3.80-1 0.80 Not Available [facility] [address] [address], [place], [address], 11/25/2023 16:07:49 11/25/19 24 11/25/2023 CBC AND DIFFE RENTI AL ne% 61.82 % 42.00- 82.00 Not Available [facility] [address] [facility] [address], [place], [address], 11/25/2023 16:07:49 11/25/19 24 11/25/2023 CBC AND DIFFE RENTI AL ly% 29.84 % 15.00- 35.00 Not Available [facility] [address] [facility] [address], [place], [address], 11/25/2023 16:07:49 11/25/19 24 11/25/2023 CBC AND DIFFE RENTI AL MO% 6.18 % 4.00-1 2.00 Not Available [facility] [address] [facility] [address], [place], [address], 11/25/2023 16:07:49 11/25/19 24 11/25/2023 CBC AND DIFFE RENTI AL eo% 1.77 % 1.00-6 .00 Not Available [facility] [address] [facility] [address], [place], [address], 11/25/2023 16:07:49 11/25/19 24 11/25/2023 CBC AND DIFFE RENTI AL ba% 0.38 % 0.00-2 .00 Not Available [facility] [address] [facility] [address], [place], [address], 11/25/2023 16:07:49 11/25/19 24 11/25/2023 CBC AND DIFFE RENTI AL ne# 4.19 10*3/ uL 1.50-7 .80 Not Available [facility] [address] [facility] [address], [place], [address], 11/25/2023 16:07:49 11/25/19 24 11/25/2023 CBC AND DIFFE RENTI AL ly# 2.02 10*3/ uL 0.85-3 .90 Not Available [facility] [address] [place] [address] [address], [place], [address], 11/25/2023 16:07:49 11/25/19 24 11/25/2023 CBC AND DIFFE RENTI AL MO# 0.42 10*3/ uL 0.20-0 .95 Not Available [facility] [address] [place] [address] [address], [place], [address], 11/25/2023 16:07:49 11/25/19 24 11/25/2023 CBC AND DIFFE RENTI AL eo# 0.12 10*3/ uL 0.02-0 .50 Not Available [facility] [address] [place] [address] [address], [place], [address], 11/25/2023 16:07:49 11/25/19 24 11/25/2023 CBC AND DIFFE RENTI AL ba# 0.03 10*3/ uL 0.00-0 .20 Not Available [facility] [address] [place] [address] [address], [place], [address], 11/25/2023 16:07:49 11/25/19 24 11/25/2023 CBC AND DIFFE RENTI AL RBC 3.79 10*6/ uL 4.20-5 .80 low Not Available [facility] [address] [facility] [address], [place], [address], 11/25/2023 16:07:49 11/25/19 24 11/25/2023 CBC AND DIFFE RENTI AL HGB 13.35 g/dL 13.20- 17.10 Not Available [facility] [address] [facility] [address], [place], [address], 11/25/2023 16:07:49 11/25/19 24 11/25/2023 CBC AND DIFFE RENTI AL HCT 34.90 % 38.50- 50.00 low Not Available [facility] [address] [facility] [address], [place], [address], 11/25/2023 16:07:49 11/25/19 24 11/25/2023 CBC AND DIFFE RENTI AL MCH 35.20 pg 27.00- 33.00 high Not Available [facility] [address] [facility] [address], [place], [address], 11/25/2023 16:07:49 11/25/19 24 11/25/2023 CBC AND DIFFE RENTI AL MCHC 38.30 g/dL 32.00- 36.00 high Not Available [facility] [address] [facility] [address], [place], [address], 11/25/2023 16:07:49 11/25/19 24 11/25/2023 CBC AND DIFFE RENTI AL MCV 92.20 fL 80.00- 100.00 Not Available [facility] [address] [facility] [address], [place], [address], 11/25/2023 16:07:49 11/25/19 24 11/25/2023 CBC AND DIFFE RENTI AL RDW 12.90 % 11.00- 15.00 Not Available [facility] [address] [facility] [address], [place], [address], 11/25/2023 16:07:49 11/25/19 24 11/25/2023 CBC AND DIFFE MIKAEL AL plt 201.60 10*3/ uL 140.00 -400.0 0 Not Available [facility] [address] [place] [address] [address], [place], [address], 11/25/2023 16:07:49 11/25/19 24 11/25/2023 CBC AND DIFFE MIKAEL AL MPV 8.31 fL Not Available [facility] [address] [place] [address] [address], [place], [address], 11/25/2023 16:07:49 11/25/19 24 11/25/2023 ESTRA DIOL, SENSI TIVE estradiol, sensitive 36.1 pg/mL 20.0-4 7.0 Not Available [facility] [address] [place] [address] [address], [place], [address], 11/25/2023 18:20:21 11/25/19 24 11/25/2023 BIOAV AILAB LE TESTO STERO NE testosterone 308.53 NG/dL 175.00 -781.0 0 Not Available [facility] [address] [place] [address] [address], [place], [address], 11/26/2023 12:07:16 11/25/19 24 11/25/2023 BIOAV AILAB LE TESTO STERO NE testosterone , free 7.8 NG/dL 9.0-30 .0 low Not Available [facility] [address] [place] [address] [address], [place], [address], 11/26/2023 12:07:16 11/25/19 24 11/25/2023 BIOAV AILAB LE TESTO STERO NE % ftesto 2.5 % Not Available [facility] [address] [place] [address] [address], [place], [address], 11/26/2023 12:07:16 11/25/19 24 11/25/2023 BIOAV AILAB LE TESTO STERO NE testosterone , bioavailable 187 NG/dL 40-235 Not Available [facility] [address] [facility] [address], [place], [address], 11/26/2023 12:07:16 11/25/19 24 11/25/2023 BIOAV AILAB LE TESTO STERO NE shbg 19.9 nmol/ L 13.3-8 9.5 Not Available [facility] [address] [facility] [address], [place], [address], 11/26/2023 12:07:16 11/25/19 24 11/25/2023 BIOAV AILAB LE TESTO STERO NE albumin-olym pus 4.4 g/dL 3.5-5. 0 Not Available [facility] [address] [facility] [address], [place], [address], 11/26/2023 12:07:16 Result Notes None recorded. Problems Name Status Onset Date Resolution Date Notes Provider Name and Address Organization Details Recorded Time Hypogonadism Active 4 Tee cooper [facility] 12/02/2023 14:25:29 Problem Notes None recorded. Procedures Surgical History Date Name Laterality Status Provider Name and Address Organization Details Recorded Time 4 Blood Draw/[employer]/PSA RESULTS completed Chica cooper [facility] 11/25/2023 14:34:38 2 Colorectal ca screen doc rev completed Tee cooper [facility] 08/29/2023 10:55:36 Excise epiphyseal bar completed Not Available Health Note 10/18/2022 18:28:46 Imaging Results None recorded. Procedure Notes None recorded. Medical Equipment None Reported. Allergies No known drug allergies Medications Name Sig Start Date Stop Date Status Note LastModified by Organization Details LastModified Time Trimix 30 papaverine/ 1 phentolamin e/10 PGE-1 inject intracave rnosal as directed PRN for sexual activity 2022 active Not Available Not Available Not Avai lable latanoprost 0.005 % eye drops INSTILL 1 DROP INTO EACH EYE NIGHTLY active Not Available Not Available No t Available carvedilol 25 mg tablet TAKE 1 TABLET BY MOUTH TWICE DAILY WITH MEALS active HN: Patient reports no longer taking Not Available Not Available Not Available benzonatate 200 mg capsule TAKE 1 CAPSULE BY MOUTH 2-3 TIMES DAILY NEEDED FOR COUGH active HN: Patient reports no longer taking Not Available Not Available Not Available glipizide ER 10 mg tablet, extended release 24 hr TAKE 2 TABLETS BY MOUTH ONCE DAILY active Not Available Not Available No t Available metoprolol succinate ER 100 mg tablet,exte nded release 24 hr TAKE 1 TABLET BY MOUTH TWICE DAILY active Not Available Not Available No t Available amlodipine 5 mg tablet TAKE 1 TABLET BY MOUTH ONCE DAILY active Not Available Not Available No t Available oseltamivir 75 mg capsule TAKE 1 CAPSULE BY MOUTH TWICE DAILY FOR 5 DAYS active HN: Patient reports no longer taking Not Available Not Available Not Available metformin 1,000 mg tablet TAKE 1 TABLET BY MOUTH TWICE DAILY active Not Available Not Available No t Available gabapentin 300 mg capsule 300 1/day active Not Available Not Available No t Available omeprazole 20 mg capsule,del ayed release TAKE 1 CAPSULE BY MOUTH ONCE DAILY active Not Available Not Available No t Available testosteron e 1 % (25 mg/2.5 gram) transdermal gel packet APPLY 1 PACKET TOPICALLY ONCE DAILY active Not Available Not Available No t Available diazepam 5 mg tablet TAKE 2 TABLETS BY MOUTH ONE TIME FOR 1 DOSE TAKE ONE HOUR PRIOR TO YOUR PROCEDURE . active HN: Patient reports no longer taking Not Available Not Available Not Available testosteron e 1 % (50 mg/5 gram) transdermal gel packet Apply 1 packet every day by transderm al route. 2023 active Not Available Not Available Not Avai lable glipizide 2.5 mg-metformi n 250 mg tablet 1000 2/day active HN: Patient reports no longer taking Not Available Not Available Not Available rosuvastati n 20 mg tablet TAKE 1 TABLET BY MOUTH IN THE EVENING active Not Available Not Available No t Available loratadine active Not Available Not Av ailable Not Available gabapentin 300 1/day active Not Available Not Available Not Available chlorphenir amine 1 mg-DM 5 mg-acetamin ophen 160 mg/5 mL oral susp Take by oral route. active Not Available Not Available No t Available valsartan 320 mg-hydrochl orothiazide 25 mg tablet TAKE 1 TABLET BY MOUTH ONCE DAILY active Not Available Not Available No t Available testosteron e 50 mg/5 gram (1 %) transdermal gel APPLY 1 PACKET TOPICALLY ONCE DAILY ALONG WITH A 25MG PACKET FOR A TOTAL DAILY DOSE OF 75MG active Not Available Not Available No t Available Trulicity 1.5 mg/0.5 mL subcutaneou s pen injector INJECT 1.5MG SUBCUTANE OUSLY ONCE A WEEK active Not Available Not Available No t Available Trulicity 0.75 mg/0.5 mL subcutaneou s pen injector INJECT 0.75MG SUBCUTANE OUSLY ONCE A WEEK FOR 4 WEEKS. active Not Available Not Available No t Available Ozempic 0.25 mg or 0.5 mg (2 mg/1.5 mL) subcutaneou s pen injector INJECT 0.25 MG SUBCUTANE OUSLY WEEKLY FOR 4 WEEKS THEN INCREASE TO 0.5 MG WEEKLY active HN: Patient reports no longer taking Not Available Not Available Not Available triamcinol ac (PF) in 0.9%NaCl active HN: Patient reports no longer taking Not Available Not Available Not Available Vitals Date Recorded Body weight Body mass index (BMI) Body height Provider Name and Address Organization Details Last Updated DateTime 10/22/2022 53022.43282 27125 g 31 kg/m2 175.26 cm Not Available Health Note 10/22/2022 14:53:52 Date Recorded Body mass index (BMI) Body weight Body height Provider Name and Address Organization Details Last Updated DateTime 12/02/2023 31 kg/m2 86352.67981 43841 g 175.26 cm Not Available Health Note 12/02/2023 14:21:45 Social History Question Answer Notes LastModified by Organizat ion Details LastModified Time Tobacco Smoking Status Never Smoker Not Available Health Note 11/28/2023 16:16:43 What Is Your Level Of Alcohol Consumption? NONE [email or web address] Information not available 11/28/2023 What Is Your Level Of Caffeine Consumption? Moderate [email or web address] Information not available 11/28/2023 How Much Tobacco Do You Chew? 2-4/day [email or web address] Information not available 11/28/2023 Do You Or Have You Ever Used E-cigarettes Or Vape? Never Used Electronic Cigarettes [email or web address] Information not available 11/28/2023 What Was The Date Of Your Most Recent Tobacco Screening? 12/02/2023 [email or web address] Information not available 11/28/2023 What Is Your Relationship Status? [email or web address] Information not available 11/28/2023 Are You Sexually Active? No [email or web address] Information not available 11/28/2023 Do You Or Have You Ever Used Smokeless Tobacco? Former Smokeless Tobacco User [email or web address] Information not available 11/28/2023 Do You Use Any Illicit Or Recreational Drugs? No [email or web address] Information not available 11/28/2023 Has Tobacco Cessation Counseling Been Provided? No Information not available 10/22/2022 Do You Or Have You Ever Used Any Other Forms Of Tobacco Or Nicotine? No Information not available 10/22/2022 How Many Days In The Past Year Have You Consumed 5 Or More Drinks? 0 [email or web address] Information no t available 11/28/2023 Sex: Unknown Functional Status None recorded. Mental Status None recorded. Family History Relationship Description Onset Age of this Age Resolved Age Notes Unspecified Relation Family history unknown Medical History Condition Response Sexually Transmitted Infection N Diabetes Y Bleeding Disorder N High Blood Pressure Y Kidney Stones N Cancer N Depression N Lung Disease N High Cholesterol N GERD/Acid Reflux N Heart Disease N Immunizations Vaccine Type Date Status Provider Name and Address Organization Details Recorded Time Influenza, adjuvanted, trivalent, PF 03/02/2018 completed Genevieve cooper [facility] 09/04/2023 15:52:28 Influenza, adjuvanted, trivalent, PF 03/03/2017 henrique cooper [facility] 09/04/2023 15:52:28 Influenza, adjuvanted, trivalent, PF 03/08/2019 completed Genevieve cooper [facility] 09/04/2023 15:52:28 zoster recombinant 08/23/2019 completed Genevieve Nails [facility] 09/04/2023 15:52:28 zoster recombinant 02/02/2020 completed Genevieve pulliam null, [facility] 09/04/2023 15:52:28 Influenza, high-dose, quadrivalent, PF 02/28/2021 completed Genevieve Kenyon null, [facility] 09/04/2023 15:52:28 Influenza, high-dose, quadrivalent, PF 03/09/2022 completed Genevieve Kenyon null, [facility] 09/04/2023 15:52:28 COVID-19, mRNA, LNP-S, PF, 30 mcg/0.3 mL dose 08/10/2020 completed Genevieve Kenyon null, [facility] 09/04/2023 15:52:28 COVID-19, mRNA, LNP-S, PF, 30 mcg/0.3 mL dose 08/31/2020 completed Genevieve Kenyon null, [facility] 09/04/2023 15:52:28 COVID-19, mRNA, LNP-S, PF, 30 mcg/0.3 mL dose 03/06/2021 completed Genevieve Kenyon null, [facility] 09/04/2023 15:52:28 COVID-19, mRNA, LNP-S, PF, 30 mcg/0.3 mL dose, dulce-sucrose 09/10/2021 completed Genevieve Kenyon null, [facility] 09/04/2023 15:52:28 COVID-19, mRNA, LNP-S, bivalent, PF, 30 mcg/0.3 mL dose 03/09/2022 completed Genevieve Kenyon null, [facility] 09/04/2023 15:52:28 pneumococcal polysaccharide PPV23 02/28/2021 completed Genevieve Kenyon null, [facility] 09/04/2023 15:52:28 Pneumococcal conjugate PCV 13 10/02/2015 completed Genevieve cooper, [facility] 09/04/2023 15:52:28 zoster live 10/14/2011 completed Genevieve Kenyon null, [facility] 09/04/2023 15:52:28 Influenza, high-dose, trivalent, PF 02/28/2016 completed Genevieve Kenyon null, [facility] 09/04/2023 15:52:28 Influenza, split virus, trivalent, PF 03/02/2012 completed Genevieve cooper, [facility] 09/04/2023 15:52:28 Influenza, split virus, trivalent, PF 03/06/2011 completed Genevieve Kenyon null, [facility] 09/04/2023 15:52:28 Influenza, split virus, trivalent, PF 04/19/2009 completed Genevieve Kenyon null, [facility] 09/04/2023 15:52:28 Novel [id number] 04/21/2009 completed Genevieve Kenyon null, [facility] 09/04/2023 15:52:28 Td (adult), 2 Lf tetanus toxoid, preservative free, adsorbed 11/22/2019 completed Genevieve Kenyon null, [facility] 09/04/2023 15:52:28 Td (adult), 2 Lf tetanus toxoid, preservative free, adsorbed 04/05/2019 completed Genevieve Kenyon null, [facility] 09/04/2023 15:52:28 Influenza, split virus, quadrivalent, PF 02/02/2020 completed Genevieve Kenyon null, [facility] 09/04/2023 15:52:28 Influenza, split virus, quadrivalent, PF 03/17/2015 completed Genevieve cooper, [facility] 09/04/2023 15:52:28 SARS-COV-2 (COVID-19) vaccine, UNSPECIFIED 03/09/2023 completed Tee Angeles null, [facility] 12/02/2023 14:25:18 zoster live 03/09/2022 completed Not Available Health Note 0 11/28/2023 16:16:48 influenza, unspecified formulation 03/09/2023 completed Tee Angeles null, [facility] 12/02/2023 14:25:18 pneumococcal, unspecified formulation 02/07/2022 completed Not Available Health Note 11/28/2023 16:16:48 Influenza, high-dose, quadrivalent, PF 02/18/2023 completed Tee Angeles null, [facility] 12/02/2023 14:25:18 RSV, recombinant, protein subunit RSVpreF, adjuvant reconstituted, 0.5 mL, PF 02/18/2023 completed Tee Angeles null, [facility] 12/02/2023 14:25:18 COVID-19, mRNA, LNP-S, PF, 50 mcg/0.5 mL 03/04/2023 completed Tee cooper, [facility] 12/02/2023 14:25:18 influenza, unspecified formulation 03/06/2022 completed Genevieve cooper, [facility] 09/04/2023 15:52:28 SARS-COV-2 (COVID-19) vaccine, UNSPECIFIED 10/28/2021 completed Genevieve Kenyon null, [facility] 09/04/2023 15:52:28 pneumococcal, unspecified formulation 03/03/2022 completed Not Available Health Note 10/18/2022 18:28:50 Past Encounters Encounter ID Performer Location Encounter Start Date Encounter Closed Date Diagnosis/Indication Diagnosis SNOMED-CT Code [id number] JENA SHELBI, [address] [address] 10/22/2022 14:48:32 10/23/2022 14:40:07 Primary erectile dysfunction [id number] Hypogonadism [id number] Chica Renetta [address] [address] 11/25/2023 14:30:12 11/25/2023 14:36:14 Hypogonadism [id number] JENA MARIO [address] [address] 12/02/2023 14:20:54 12/02/2023 15:39:45 Primary erectile dysfunction [id number] Hypogonadism [id number] Health Concerns Section Related Observation LastModified by Organization Detai ls LastModified Time None Recorded Concern Status LastModified by Organization Details LastModified Time None Recorded Advance Directives Directive None Recorded Payers Encounter Date Sequence Insurance Name Policy Number Policy Sandhu Covered Member ID Sandhu Member ID Guarantor Name 10/22/2022 1 [place] [employer] [place] COST [id number] Adrian Yañez [id number] Adrian Yañez 11/25/2023 1 [facility] (MEDICARE REPLACEMENT/A DVANTAGE - PPO) [id number] Adrian Yañez [id number] Adrian Yañez 11/25/2023 2 [place] [employer] Adrian Yañez [id number] Adrian Yañez 12/02/2023 1 [facility] (MEDICARE REPLACEMENT/A DVANTAGE - PPO) [id number] Adrian Yañez [id number] Adrian Yañez Notes Date Note Type Note Provider Name and Address Organization Details Recorded Time 10/22/2022 text/html HPI Notes: Erect ile Dysfunction Reported by patient. Notes: Patient presents for an evaluation of erectile dysfunction (ED). He reports difficulty with erections for the past 5+ years. No preceding event he can associate to the development of ED. Gradual decline in erectile function since initial onset. He has tried Sildenafil and Tadalafil in his past which were both largely ineffective. He transitioned to penile self injections. He is able to achieve an ehs of 3 with adequate maintenance when injecting 0.6 cc on trimix (18/0.6/11.8). No pain or curvature to penis with erections. Good libido and energy as long as he is taking testosterone consistently. Hypogonadism Reported by patient. Notes: Patient presents for a hypogonadism evaluation. He has been replacing testosterone via topical gel for the past 5+ years. He is currently applying 50 mg / 5 g (1%) daily. His symptoms of energy and low libido are improved while on testosterone replacement. No side effects noted with testosterone replacement. His total testosterone tends to fluctuate between 300-450 when using testosterone gel consistently. His hypogonadism is primarily managed down in [place], but he is looking to transition care. JENA MARIO, [address], [place], [address], [facility] 10/23/2022 09:16:11 12/02/2023 text/html HPI Notes: Erect ile Dysfunction Reported by patient. Notes: Patient presents for a follow up of erectile dysfunction (ED). Sildenafil and tadalafil have been ineffective. He transition to penile injections which have been moderately effective in the past. He is prescription for Trimix was increased to a higher concentration at last visit. However, he has not attempted a Trimix injection due to his 's health. He is unsure if he will return to sexual activity with his partner. Hypogonadism Reported by patient. Notes: Patient presents for a hypogonadism follow up. He is currently applying 1 packet of 50 mg / 5 g (1%) and 1 packet of 25 mg/2.5g daily. His hypogonadal symptoms (libido, energy, mood) are well controlled on current treatment plan. No side effects noted with testosterone replacement. His total testosterone tends to fluctuate between 300-450 when using testosterone gel consistently. No concerns with estradiol or hematocrit. JENA MARIO, ITA [address] [place] [address],[address], [place], [address], [facility] 12/02/2023 14:42:56
--- OUTSIDE RECORDS SUMMARY | 2024-01-06 11:26 | XMS_ITS | Continuity of Care Document ---
Author Organization [facility], [facility] Address [address] [address] Care Team Providers [facility] Pharmacy Director Name Role Phone [facility] Primary Care Provider AGNES HALL Primary Care Provider [phone] Assessment No assessment recorded. Plan of Treatment Reminders Order Date Submit Date Provider Last Modified By Organization Details Last Modified Time Details Appointments None recorded. Lab None recorded. Referral None recorded. Procedures None recorded. Surgeries None recorded. Imaging None recorded. Medication Orders testosteron e 1 % (50 mg/5 gram) transdermal gel packet [address] [facility] [address], [address] [place], [address], 14:42:32 Patient TargetsNo targets recorded. Patient Instructions Encounter Date Encounter Id Patient Instructions Last Modified By Organization Details Last Modified Time 12/02/2023 [id number] 72 y/o male presents for a follow up of hypogonadism and ED Hypogonadism - Good symptom control. Continue testosterone application unchanged. Refills provided. Maintain consistent application regimen. Repeat labs on 6 month intervals. ED - Penile injections remain a good option for patient if returning to sexual activity with his . Patient will notify office if interested in Trimix prescription. [email or web address] Not available 12/02/2023 14:42:49 Reason for Referral None Reported. Problems Name Status Onset Date Resolution Date Notes Provider Name and Address Organization Details Recorded Time Hypogonadism Active [facility] 12/02/2023 14:25:29 Problem Notes None recorded. Procedures Surgical History Date Name Laterality Status Provider Name and Address Organization Details Recorded Time 4 Blood Draw/FRENCH FOLDER/PSA RESULTS completed Chica Jackson null [facility] 11/25/2023 14:34:38 2 Colorectal ca screen doc rev completed Tee Pereiradebbi null, [facility] 08/29/2023 10:55:36 Excise epiphyseal bar completed Not [...] Available Not Available Vitals Date Recorded Body mass index (BMI) Body weight Body height Provider Name and Address Organization Details Last Updated DateTime 12/02/2023 31 kg/m2 64520.47022 15701 g 175.26 cm Not Available Health Note [...] adjuvanted, trivalent, PF 03/02/2018 completed Genevieve cooper [facility] 09/04/2023 15:52:28 Influenza, adjuvanted, trivalent, PF 03/03/2017 completed [facility]evieve Kenyon null, [facility] 09/04/2023 15:52:28 Influenza, adjuvanted, trivalent, PF 03/08/2019 completed Genevieve Kostas null, [facility] 09/04/2023 15:52:28 zoster recombinant 08/23/2019 completed Genevieve John e null, [facility] 09/04/2023 15:52:28 zoster recombinant 02/02/2020 completed Genevieve John e null, [facility] 09/04/2023 15:52:28 Influenza, high-dose, quadrivalent, PF 02/28/2021 completed Genevieve Kenyon null, [facility] 09/04/2023 15:52:28 Influenza, high-dose, quadrivalent, PF 03/09/2022 completed Genevieve Kenyon null, [facility] 09/04/2023 15:52:28 COVID-19, mRNA, LNP-S, PF, 30 mcg/0.3 mL dose 08/10/2020 completed Genevieve Kenyon null, [facility] 09/04/2023 15:52:28 COVID-19, mRNA, LNP-S, PF, 30 mcg/0.3 mL dose 08/31/2020 completed Genevieve Kenyon null, [facility] 09/04/2023 15:52:28 COVID-19, mRNA, LNP-S, PF, 30 mcg/0.3 mL dose 03/06/2021 completed Genevieve Kenyon null, [facility] 09/04/2023 15:52:28 COVID-19, mRNA, LNP-S, PF, 30 mcg/0.3 mL dose, dulce-sucrose 09/10/2021 completed Genevieve Kostas null, [facility] 09/04/2023 15:52:28 COVID-19, mRNA, LNP-S, bivalent, PF, 30 mcg/0.3 mL dose 03/09/2022 completed Genevieve Kostas null, [facility] 09/04/2023 15:52:28 pneumococcal polysaccharide PPV23 02/28/2021 completed Genevieve Kostas null, [facility] 09/04/2023 15:52:28 Pneumococcal conjugate PCV 13 10/02/2015 completed Genevieve Kenyon null, [facility] 09/04/2023 15:52:28 zoster live 10/14/2011 completed Genevieve Kenyon null, [facility] 09/04/2023 15:52:28 Influenza, high-dose, trivalent, PF 02/28/2016 completed Genevieve Kenyon null, [facility] 09/04/2023 15:52:28 Influenza, split virus, trivalent, PF 03/02/2012 completed Genevieve Kenyon null, [facility] 09/04/2023 15:52:28 Influenza, split virus, trivalent, PF 03/06/2011 completed Genevieve Kenyon null, [facility] 09/04/2023 15:52:28 Influenza, split virus, trivalent, PF 04/19/2009 completed Genevieve Kenyon null, [facility] 09/04/2023 15:52:28 Novel [id number] 04/21/2009 completed Genevieve cooper, [facility] 09/04/2023 15:52:28 Td (adult), 2 Lf tetanus toxoid, preservative free, adsorbed 11/22/2019 completed Genevieve cooper, [facility] 09/04/2023 15:52:28 Td (adult), 2 Lf tetanus toxoid, preservative free, adsorbed 04/05/2019 completed Genevieve cooper, [facility] 09/04/2023 15:52:28 Influenza, split virus, quadrivalent, PF 02/02/2020 completed Genevieve cooper, [facility] 09/04/2023 15:52:28 Influenza, split virus, quadrivalent, PF 03/17/2015 completed Genevieve cooper, [facility] 09/04/2023 15:52:28 SARS-COV-2 (COVID-19) vaccine, UNSPECIFIED 03/09/2023 completed Tee Angeles null, [facility] 12/02/2023 14:25:18 zoster live 03/09/2022 completed Not Available Health Note 0 11/28/2023 16:16:48 influenza, unspecified formulation 03/09/2023 completed Tee Angeles null, [facility] 12/02/2023 14:25:18 pneumococcal, unspecified formulation 02/07/2022 completed Not Available Health Note 11/28/2023 16:16:48 Influenza, high-dose, quadrivalent, PF 02/18/2023 completed Tee cooper, [facility] 12/02/2023 14:25:18 RSV, recombinant, protein subunit RSVpreF, adjuvant reconstituted, 0.5 mL, PF 02/18/2023 completed Tee cooper, [facility] 12/02/2023 14:25:18 COVID-19, mRNA, LNP-S, PF, 50 mcg/0.5 mL 03/04/2023 completed Tee cooper, [facility] 12/02/2023 14:25:18 influenza, unspecified formulation 03/06/20[facility] 15:52:28 SARS-COV-2 (COVID-19) vaccine, UNSPECIFIED 10/28/2021 [facility] 15:52:28 pneumococcal, unspecified formulation 03/03/2022 completed Not Available Health Note 10/18/2022 18:28:50 Past Encounters Encounter ID Performer Location Encounter Start Date Encounter Closed Date Diagnosis/Indication Diagnosis SNOMED-CT Code [id number] Chica Jackson [address] [address] 11/25/2023 14:30:12 11/25/2023 14:36:14 Hypogonadism [id number] ITA LEW [address] [address] 12/02/2023 14:20:54 12/02/2023 15:39:45 Primary erectile dysfunction [id number] Hypogonadism [id number] Health Concerns Section Related Observation LastModified by Organization Detai ls LastModified Time None Recorded Concern Status LastModified by Organization Details LastModified Time None Recorded Payers Encounter Date Sequence Insurance Name Policy Number Policy Sandhu Covered Member ID Sandhu Member ID Guarantor Name 12/02/2023 1 [facility] (MEDICARE REPLACEMENT/A DVANTAGE - PPO) [id number] Adrian Yañez [id number] Adrian Yañez Notes Date Note Type Note Provider Name and Address Organization Details Recorded Time 12/02/2023 text/html HPI Notes: Erect ile Dysfunction [...] with estradiol or hematocrit. JENA MARIO, ITA [address] [place] [address],[address], [place], [address], [facility] 12/02/2023 14:42:56
--- OUTSIDE RECORDS SUMMARY | 2024-01-06 11:26 | XMS_ITS | Continuity of Care Document ---
Author Organization [facility] [place] [facility], [facility] Address [address] [facility] [address] [place] [address] Care Team Providers Care Senior Analytic Consultant Name Role Phone [facility] Primary Care Provider AGNES HALL Primary Care Provider Assessment No assessment recorded. Plan of Treatment Reminders Order Date Submit Date Provider Last Modified By Organization Details Last Modified Time Details Appointments None recorde d. Lab testost erone, bioavai lable, serum 024 11/25/19 24 [facility], [address], [place], [address], 4 12:07:16 estradi ol, serum 024 11/25/19 24 [facility], [address], [address], [place], [address], 4 18:20:21 CBC w/ diff 024 11/25/19 24 [facility], [address], [address], [place], [address], 4 16:07:50 Referral None recorde d. Procedures None recorde d. Surgeries None recorde d. Imaging None recorde d. Medication Orders None recorde d. Patient TargetsNo targets recorded. Patient InstructionsNo instructions recorded. Reason for Referral None Reported. Problems Name Status Onset Date Resolution Date Notes Provider Name and Address Organization Details Recorded Time Hypogonadism Active 4 [facility] [place] [facility] 12/02/2023 14:25:29 Problem Notes None recorded. Procedures Surgical History Date Name Laterality Status Provider Name and Address Organization Details Recorded Time 4 Blood Draw/MEAT PACKER/PSA RESULTS completed Chica Jackson allison [facility] 11/25/2023 14:34:38 2 Colorectal ca screen doc rev completed Tee cooper [facility] 08/29/2023 10:55:36 Excise epiphyseal bar completed [...] Not Available Not Available Not Available Vitals None Recorded Social History Question Answer Notes LastModified by [...] Family history unknown Medical History Condition Response Diabetes Y Sexually Transmitted Infection N Bleeding Disorder N High Blood Pressure Y Kidney Stones N Cancer N Lung Disease N Depression N High Cholesterol N GERD/Acid Reflux N Heart Disease N Immunizations Vaccine Type Date Status Provider Name and Address Organization Details Recorded Time Influenza, adjuvanted, trivalent, PF 03/02/2018 henrique cooper [facility] 09/04/2023 15:52:28 Influenza, adjuvanted, trivalent, PF 03/03/2017 henrique cooper [facility] 09/04/2023 15:52:28 Influenza, adjuvanted, trivalent, PF 03/08/2019 completed Genevieve Kenyon null, [facility] 09/04/2023 15:52:28 zoster recombinant 08/23/2019 completed Genevieve pulliam null, [facility] 09/04/2023 15:52:28 zoster recombinant 02/02/2020 completed Genevieve Lopez e null, [facility] 09/04/2023 15:52:28 Influenza, high-dose, quadrivalent, PF 02/28/2021 completed Genevieve Kenyon null, [facility] 09/04/2023 15:52:28 Influenza, high-dose, quadrivalent, PF 03/09/2022 completed Genevieve Kenyon null, [facility] 09/04/2023 15:52:28 COVID-19, mRNA, LNP-S, PF, 30 mcg/0.3 mL dose 08/10/2020 completed Genevieve Kenyon null, [facility] 09/04/2023 15:52:28 COVID-19, mRNA, LNP-S, PF, 30 mcg/0.3 mL dose 08/31/2020 completed Genevieve Kenyon null, [facility] 09/04/2023 15:52:28 COVID-19, mRNA, LNP-S, PF, 30 mcg/0.3 mL dose 03/06/2021 completed Genevieve Kenyon null, [facility] 09/04/2023 15:52:28 COVID-19, mRNA, LNP-S, PF, 30 mcg/0.3 mL dose, dulce-sucrose 09/10/2021 completed Genevieve Kenyon null, [facility] 09/04/2023 15:52:28 COVID-19, mRNA, LNP-S, bivalent, PF, 30 mcg/0.3 mL dose 03/09/2022 completed Genevieve Kenyon null, [facility] 09/04/2023 15:52:28 pneumococcal polysaccharide PPV23 02/28/2021 completed Genevieve Kenyon null, [facility] 09/04/2023 15:52:28 Pneumococcal conjugate PCV 13 10/02/2015 completed Genevieve Kenyon null, [facility] 09/04/2023 15:52:28 zoster live 10/14/2011 completed Genevieve cooper, [facility] 09/04/2023 15:52:28 Influenza, high-dose, trivalent, PF 02/28/2016 completed Genevieve Kenyon null, [facility] 09/04/2023 15:52:28 Influenza, split virus, trivalent, PF 03/02/2012 completed Genevieve Kenyon null, [facility] 09/04/2023 15:52:28 Influenza, split virus, trivalent, PF 03/06/2011 completed Genevieve Kenyon null, [facility] 09/04/2023 15:52:28 Influenza, split virus, trivalent, PF 04/19/2009 completed Genevieve cooper, [facility] 09/04/2023 15:52:28 Novel [id number] 04/21/2009 completed Genevieve cooper, [facility] 09/04/2023 15:52:28 Td (adult), 2 Lf tetanus toxoid, preservative free, adsorbed 11/22/2019 completed Genevieve cooper, [facility] 09/04/2023 15:52:28 Td (adult), 2 Lf tetanus toxoid, preservative free, adsorbed 04/05/2019 completed Genevieve cooper, [facility] 09/04/2023 15:52:28 Influenza, split virus, quadrivalent, PF 02/02/2020 completed Genevieve cooper, [facility] 09/04/2023 15:52:28 Influenza, split virus, quadrivalent, PF 03/17/2015 completed Genevieve cooper, [facility] 09/04/2023 15:52:28 SARS-COV-2 (COVID-19) vaccine, UNSPECIFIED 03/09/2023 completed Tee Angeles null, [facility] 12/02/2023 14:25:18 zoster live 03/09/2022 completed Not Available Health Note 0 11/28/2023 16:16:48 influenza, unspecified formulation 03/09/2023 completed Tee Angeles null, [facility] 12/02/2023 14:25:18 pneumococcal, unspecified formulation 02/07/2022 completed Not Available Health Note 11/28/2023 16:16:48 Influenza, high-dose, quadrivalent, PF 02/18/2023 completed Tee Angeles null, [facility] 12/02/2023 14:25:18 RSV, recombinant, protein subunit RSVpreF, adjuvant reconstituted, 0.5 mL, PF 02/18/2023 completed Tee Angeles null, [facility] 12/02/2023 14:25:18 COVID-19, mRNA, LNP-S, PF, 50 mcg/0.5 mL 03/04/2023 completed Tee Angeles null, [facility] 12/02/2023 14:25:18 influenza, unspecified formulation 03/06/2022 completed Genevieve cooper, [facility] 09/04/2023 15:52:28 SARS-COV-2 (COVID-19) vaccine, UNSPECIFIED 10/28/2021 [facility] 15:52:28 pneumococcal, unspecified formulation 03/03/2022 completed Not Available Health Note 10/18/2022 18:28:50 Past Encounters Encounter ID Performer Location Encounter Start Date Encounter Closed Date Diagnosis/Indication Diagnosis SNOMED-CT Code [id number] Chica Jackson [address] [address] 11/25/2023 14:30:12 11/25/2023 14:36:14 Hypogonadism [id number] Health Concerns Section Related Observation LastModified by Organization Detai ls LastModified Time None Recorded Concern Status LastModified by Organization Details LastModified Time None Recorded Payers Encounter Date Sequence Insurance Name Policy Number Policy Sandhu Covered Member ID Sandhu Member ID Guarantor Name 11/25/2023 1 [facility] (MEDICARE REPLACEMENT/A DVANTAGE - PPO) [id number] Adrian Yañez [id number] Adrian Yañez 11/25/2023 2 MED[place]: [employer] Adrian Yañez [id number] Adrian Yañez
== END 2024-01-05 11:53 | disposition home or self-care (01) ==
LOC: NFLDREF 01-06 11:23
PROVIDERS: PCP Physician Assistant Medical; Referring Provider Family Medicine; Visit Provider Physician Assistant Medical
DX: I10 Essential (primary) hypertension (principal); R80.9 Proteinuria, unspecified; E78.2 Mixed hyperlipidemia; E11.40 Type 2 diabetes mellitus with diabetic neuropathy, unspecified; K21.9 Gastro-esophageal reflux disease without esophagitis; E11.9 Type 2 diabetes mellitus without complications; E11.29 Type 2 diabetes mellitus with other diabetic kidney complication; D64.9 Anemia, unspecified; E29.1 Testicular hypofunction
CPT/HCPCS: 80069; 82043; 82570; 83970; 84550; 87086

== ENCOUNTER 2024-07-27 13:31 | Outpatient (CLI) | payer MEDICARE, SELFPAY | END 2024-07-27 13:32 | disposition home or self-care (01) | LOC: NFLDREF 07-31 03:30 | PROVIDERS: PCP Physician Assistant Medical; Referring Provider Physician Assistant Medical; Visit Provider Internal Medicine Nephrology | DX: E11.42 Type 2 diabetes mellitus with diabetic polyneuropathy (principal); R80.9 Proteinuria, unspecified; I10 Essential (primary) hypertension; D64.9 Anemia, unspecified; M10.9 Gout, unspecified; N18.32 Chronic kidney disease, stage 3b; E78.5 Hyperlipidemia, unspecified; R20.0 Anesthesia of skin | CPT/HCPCS: 80061; 80069; 82043; 82570; 82728; 83540; 83550; 83970; 84450; 84460; 84550; 87086 ==

== ENCOUNTER 2025-02-03 10:32 | Outpatient (CLI) | payer MEDICARE, SELFPAY | END 2025-02-03 10:33 | disposition home or self-care (01) | PROVIDERS: PCP Physician Assistant Medical; Visit Provider Physician Assistant Medical | DX: S70.361A Insect bite (nonvenomous), right thigh, initial encounter (principal); R53.83 Other fatigue; Z11.8 Encounter for screening for other infectious and parasitic diseases | CPT/HCPCS: 84443; 86618 ==